=== PATIENT | female | born 1990 | race Caucasian/White ===

== ENCOUNTER 2016-10-13 01:59 | Emergency (ER) | payer MEDICAID ==
[2016-10-13] MEDS ORDERED: KETOROLAC 60 MG/2 ML VIAL IM STA (02:13)
[2016-10-13] MEDS ORDERED: KETOROLAC 60 MG/2 ML VIAL ONE (02:15)
[2016-10-13] MEDS ORDERED: DEXAMETHASONE 10 MG/ML VIAL IVP STA (02:42)
[2016-10-13] MEDS ORDERED: SODIUM CHLORIDE 0.9% 1,000 ML IV ONE (02:42)
[2016-10-13] MEDS ORDERED: cefTRIAXone 1 GM in SODIUM CHLORIDE 0.9% MINIBAG 100 ML IV STA (02:42)
[2016-10-13] MEDS ORDERED: cefTRIAXone 1 GM VIAL ONE (02:54)
[2016-10-13] MEDS ORDERED: DEXAMETHASONE 10 MG/ML VIAL ONE (02:54)
[2016-10-13] MEDS ORDERED: POTASSIUM BICARB 25 MEQ TABLET PO STA (03:33)
[2016-10-13] MEDS ORDERED: POTASSIUM BICARB 25 MEQ TABLET PO ONE (04:06)
[2016-10-13] MEDS ORDERED: SODIUM CHLORIDE 0.9% 500 ML IV ONE (04:11)
== END 2016-10-13 05:42 | disposition home or self-care (01) ==
DX: E86.0 Dehydration (principal); J18.9 Pneumonia, unspecified organism; F17.200 Nicotine dependence, unspecified, uncomplicated
CPT/HCPCS: 36415; 71020; 80053; 81003; 81025; 83690; 85025; 96361; 96372; 96374; 96375; 99283; 99284; A9270

== ENCOUNTER 2016-11-27 14:19 | Outpatient (CLI) | payer MEDICAID | END 2016-11-27 14:20 | disposition home or self-care (01) | DX: Z00.00 Encounter for general adult medical examination without abnormal findings (principal); Z83.49 Family history of other endocrine, nutritional and metabolic diseases ==

== ENCOUNTER 2016-12-25 02:45 | Emergency (ER) | payer MEDICAID ==
[2016-12-25] MEDS ORDERED: ONDANSETRON ODT 4 MG TABLET TL STA (03:03)
[2016-12-25] MEDS ORDERED: THIAMINE 100 MG TABLET PO STA (03:03)
[2016-12-25] MEDS ORDERED: FOLIC ACID 1 MG TABLET PO STA (03:03)
[2016-12-25] MEDS ORDERED: ONDANSETRON ODT 4 MG TABLET ONE (03:06)
[2016-12-25] MEDS ORDERED: THIAMINE 100 MG TABLET PO ONE (03:06)
[2016-12-25] MEDS ORDERED: MULTIVITAMIN TABLET PO ONE (03:08)
[2016-12-25] MEDS ORDERED: MULTIVITAMIN TABLET PO STA (03:11)
== END 2016-12-25 04:00 | disposition home or self-care (01) ==
DX: K29.70 Gastritis, unspecified, without bleeding (principal); F10.10 Alcohol abuse, uncomplicated; F17.200 Nicotine dependence, unspecified, uncomplicated
CPT/HCPCS: 81003; 81025; 99283; A9270; Q0162

== ENCOUNTER 2017-04-21 09:27 | Emergency (ER) | payer MEDICAID ==
[2017-04-21 09:47] VITALS: BP 141/98
== END 2017-04-21 09:50 | disposition left against medical advice (07) ==
LOC: ED 09:27
DX: S61.401A Unspecified open wound of right hand, initial encounter (principal); Z53.21 Procedure and treatment not carried out due to patient leaving prior to being seen by health care provider

== ENCOUNTER 2017-04-24 08:00 | Outpatient (CLI) | payer MEDICAID | END 2017-04-24 08:01 | disposition home or self-care (01) | LOC: LAB.R 08:00 | PROVIDERS: ATTEND Registered Nurse | DX: Z11.3 Encounter for screening for infections with a predominantly sexual mode of transmission (principal) | CPT/HCPCS: 87491; 87591 ==

== ENCOUNTER 2017-08-20 03:16 | Emergency (ER) | payer MEDICAID ==
[2017-08-20 03:23] VITALS: BP 163/114
--- NOTE | 2017-08-20 03:50 | ED Physician Documentation ---
History of Present Illness - Stated complaint Stated Complaint: BACK PAIN - Chief complaint Chief Complaint: Back Pain - History obtained from History obtained from: Patient (pt is here for evaluation fo bilateral back pain that she staes is just below her shoulder blades on both sides. pain with cough and deep breath and palpation, no fevers. she states that she has not been coughing. 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 HEENT: None Psych: None Musculoskeletal: None Derm: None - Past Surgical History Past Surgical History: No - Allergies Allergies/Adverse Reactions: Allergies Allergy/AdvReac Type Severity Reaction Status Date / Time hydrocodone bitartrate * Allergy Rash Verified 04/21/17 09:47 [From Vicodin] - Social History Does the pt smoke?: Yes Smoking Status: Current every day smoker Does the pt drink ETOH?: Yes Does the pt have substance abuse?: Yes - Immunizations Immunizations are current?: Yes - POLST Patient has POLST: No PD ED PE NORMAL - Vitals Vital signs reviewed: Yes - General General: Alert and oriented X 3, No acute distress - Cardiac Cardiac: No murmur. No: RRR (tachycardic) - Respiratory Respiratory: No respiratory distress, Clear bilaterally - Back Back: No CVA TTP, No spinal TTP, Other (somewhat TTP bilateral paraspinal area lower thoracic region ) - Derm Derm: Normal color, No rash - Neuro Neuro: Alert and oriented X 3 Eye Opening: Spontaneous Motor: Obeys Commands Verbal: Oriented GCS Score: 15 - Psych Psych: Normal mood, Normal affect Results - Vitals Vitals: Vital Signs - 24 hr 08/20/17 03:21 Temperature 36.1 C L Heart Rate 111 H Respiratory 18 Rate Blood Pressure 163/114 H O2 Saturation 99 Oxygen O2 Source Room air - Rads (name of study) CXR Radiology: Final report received (No acute abnormality ), EMP read contemporaneously PD MEDICAL DECISION MAKING - ED course Complexity details: reviewed results, re-evaluated patient, considered differential, d/w patient ED course: pt with bilateral mid back pain paraspinal region. no fevers, CXR neg, PE is not CW ACS or PE, no signs of PNA. suspect MSK in origin. Discussed with patient. Gave return precautions. Departure - Departure Disposition: Home, Self Care Clinical Impression: Back pain Condition: Good Instructions: ANTI-INFLAMMATORY, General Follow-Up: Primary, care provider [Other] Comments: Return to the ER for any new or worsening symptoms.
--- NOTE | 2017-08-20 04:03 | XRAY Preliminary Report ---
Exam: XR CHEST 2 VIEW PA/LAT IMPRESSION: 1. No acute abnormality seen in the chest. [facility] SITE ID: [id number]
--- NOTE | 2017-08-20 04:03 | XRAY Report ---
EXAM: CHEST RADIOGRAPHY EXAM DATE: 08/20/2017 03:46 AM. CLINICAL HISTORY: Chest pain . COMPARISON: 10/13/2016. TECHNIQUE: 2 views. FINDINGS: Lungs/Pleura: No alveolar consolidation or pleural effusion. No pneumothorax. Mediastinum: Heart and mediastinal contours are unremarkable. Other: None. IMPRESSION: 1. No acute abnormality seen in the chest. [facility] Referring Provider Line: [phone] SITE ID: [id number]
== END 2017-08-20 04:28 | disposition home or self-care (01) ==
LOC: ED 03:16
DX: M54.6 Pain in thoracic spine (principal); R05 Cough; R00.2 Palpitations; F17.200 Nicotine dependence, unspecified, uncomplicated
CPT/HCPCS: 71020; 99282; 99283

== ENCOUNTER 2017-10-20 20:55 | Emergency (ER) | payer MEDICAID ==
[2017-10-20 21:02] VITALS: BP 135/110
[2017-10-20] MEDS ORDERED: OXYMETAZOLINE NASAL SPRAY NAS STA (21:05)
--- NOTE | 2017-10-20 21:07 | ED Physician Documentation ---
PD HPI HEENT - Stated complaint Stated Complaint: NOSE BLEED - Chief complaint Chief Complaint: Heent - History obtained from History obtained from: Patient - History of Present Illness Timing - onset: Other (1-1/2 hours of heavy nosebleed from the right, she has had some ongoing sinus symptoms with allergy symptoms but no fevers. No possibility of .) Review of Systems Constitutional: denies: Fever, Chills Nose: reports: Rhinorrhea / runny nose, Epistaxis. 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 HEENT: None Psych: None Musculoskeletal: None Derm: None - Past Surgical History Past Surgical History: No - Allergies Allergies/Adverse Reactions: Allergies Allergy/AdvReac Type Severity Reaction Status Date / Time hydrocodone bitartrate * Allergy Rash Verified 04/21/17 09:47 [From Vicodin] - Social History Does the pt smoke?: Yes Smoking Status: Current every day smoker Does the pt drink ETOH?: Yes Does the pt have substance abuse?: Yes - Immunizations Immunizations are current?: Yes - POLST Patient has POLST: No PD ED PE NORMAL - Vitals Vital signs reviewed: Yes - General General: Alert and oriented X 3, No acute distress - HEENT HEENT: Other (Raw right nasal septum with some blood there but no active bleeding.) - Neck Neck: Supple, no meningeal sign, No bony TTP - Neuro Neuro: Alert and oriented X 3, Normal speech - Psych Psych: Normal mood, Normal affect Results - Vitals Vitals: Vital Signs - 24 hr 10/20/17 20:58 Temperature 35.9 C L Heart Rate 89 Respiratory 18 Rate Blood Pressure 135/110 H O2 Saturation 95 Oxygen O2 Source Room air Procedures - Epistaxis Site: Right, Anterior Preparation: Clots removed, Afrin Treatment: Silver Nitrate Other: Observed - no bleeding, Pt tolerated well Departure - Departure Disposition: 01 Home, Self Care Clinical Impression: Epistaxis Condition: Good Record reviewed to determine appropriate education?: Yes Instructions: ED Nosebleed Comments: Call your doctor to arrange a follow-up appointment, make the next available appointment. In the interim, return anytime if worse or if new symptoms develop. Your blood pressure was elevated today on check into the emergency department. This does not mean that you have hypertension, it is a common phenomenon to come to the emergency department and have elevated blood pressure. I recommend that you see your primary care physician within the week to have it rechecked when you are feeling better.
== END 2017-10-20 21:34 | disposition home or self-care (01) ==
LOC: ED 20:55
DX: R04.0 Epistaxis (principal); R03.0 Elevated blood-pressure reading, without diagnosis of hypertension; F17.200 Nicotine dependence, unspecified, uncomplicated
CPT/HCPCS: 30901; 99282; A9270

== ENCOUNTER 2018-12-15 20:49 | Emergency (ER) | payer MEDICAID ==
--- NOTE | 2018-12-15 21:10 | ED Physician Documentation ---
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 HEENT: None Psych: None Musculoskeletal: None Derm: None - Past Surgical History Past Surgical History: No - Allergies Allergies/Adverse Reactions: Allergies Allergy/AdvReac Type Severity Reaction Status Date / Time hydrocodone bitartrate * Allergy Rash Verified 04/21/17 09:47 [From Vicodin] - Social History Does the pt smoke?: Yes Smoking Status: Current every day smoker Does the pt drink ETOH?: Yes Does the pt have substance abuse?: Yes - Immunizations Immunizations are current?: Yes - POLST Patient has POLST: No Results - Vitals Vitals: Vital Signs - 24 hr 12/15/18 20:56 Temperature 36.9 C Heart Rate 162 H Respiratory 18 Rate Blood Pressure 119/96 H O2 Saturation 99 Oxygen O2 Source Room air
--- NOTE | 2018-12-15 21:13 | ED Physician Documentation ---
History of Present Illness - Stated complaint Stated Complaint: CHEST PX/SOA - Chief complaint Chief Complaint: Cardiac - History obtained from History obtained from: Patient - History of Present Illness Timing: Enter time (16:00), Today Improved by: nothing Worsened by: swallowing - Additonal information Additional information: patient c/o chest pain across anterior chest and painful, swollen throat since 4 PM today. vomiting at times during H+P. Patient told triage nurse she has been drinking alcohol heavily and daily until yesterday, and that she recently used methamphetamines. Review of Systems Constitutional: denies: Fever, Chills, Sweats Throat: reports: Sore throat Cardiac: reports: Chest pain / pressure. denies: Palpitations Respiratory: denies: Dyspnea, Cough GI: reports: Nausea, Vomiting. 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 HEENT: None Psych: None Musculoskeletal: None Derm: None - Past Surgical History Past Surgical History: No - Present Medications Home Medications: Ambulatory Orders Medication Instructions Recorded Confirmed Amoxicillin 500 mg PO BID #20 capsule 12/16/18 LORazepam [Lorazepam] 1 mg PO Q6HR PRN #14 tablet 12/16/18 Ondansetron Odt [Zofran] 4 mg TL Q6H PRN #10 tablet 12/16/18 cloNIDine HCl [Clonidine HCl] 0.1 mg PO BID #30 tablet 12/16/18 - Allergies Allergies/Adverse Reactions: Allergies Allergy/AdvReac Type Severity Reaction Status Date / Time hydrocodone bitartrate * Allergy Rash Verified 12/16/18 02:57 [From Vicodin] - Social History Does the pt smoke?: Yes Smoking Status: Current every day smoker Does the pt drink ETOH?: Yes Does the pt have substance abuse?: Yes - Immunizations Immunizations are current?: Yes - POLST Patient has POLST: No PD ED PE NORMAL - Vitals Vital signs reviewed: Yes - General General: Alert and oriented X 3, Well developed/nourished, Other (anxious) - HEENT HEENT: PERRL, EOMI, Other (parched mucous membranes; posterior oropharyngeal erythema without obvious swelling. trace exudate right posterior o/p) - Neck Neck: Supple, no meningeal sign - Respiratory Respiratory: No respiratory distress, Clear bilaterally - Abdomen Abdomen: Soft, Non tender - Back Back: No CVA TTP, No spinal TTP - Derm Derm: Normal color, Warm and dry - Extremities Extremities: No edema - Neuro Neuro: Alert and oriented X 3 PD ED PE EXPANDED - Cardiac Cardiac: Tachy, Regular Rhythm Results - Vitals Vitals: Vital Signs - 24 hr 12/15/18 12/15/18 12/15/18 20:56 21:32 22:08 Temperature 36.9 C Heart Rate 162 H 138 H 140 H Respiratory 18 16 16 Rate Blood Pressure 119/96 H 152/121 H 156/106 H O2 Saturation 99 99 99 12/15/18 12/15/18 12/16/18 23:10 23:40 00:15 Temperature Heart Rate 141 H 129 H 133 H Respiratory 24 18 28 H Rate Blood Pressure 155/122 H 153/116 H 155/118 H O2 Saturation 99 98 98 12/16/18 12/16/18 12/16/18 01:02 02:39 03:29 Temperature Heart Rate 124 H 122 H 124 H Respiratory 16 18 16 Rate Blood Pressure 154/115 H 145/102 H 160/149 H O2 Saturation 96 100 100 12/16/18 12/16/18 04:24 05:32 Temperature 36.5 C Heart Rate 124 H 124 H Respiratory 16 16 Rate Blood Pressure 146/115 H 146/105 H O2 Saturation 97 96 Oxygen O2 Source Room air - EKG (time done) No standard instances Rate: Rate (enter#) (154), Tachy Rhythm: Sinus tachycardia [place]: Normal Intervals: Normal CO QRS: Normal Ischemia: ST depression (diffuse) - Labs Labs: Laboratory Tests 12/15/18 12/15/18 12/15/18 21:18 21:18 21:18 WBC 7.7 RBC 4.50 Hgb 14.9 Hct 45.0 MCV 99.9 H MCH 33.2 H MCHC 33.2 RDW 12.9 Plt Count 99 L MPV 9.6 Neut # (Auto) 6.8 H Lymph # (Auto) 0.4 L [place] # (Auto) 0.5 Eos # (Auto) 0.0 Baso # (Auto) 0.0 Absolute Nucleated RBC 0.00 Nucleated RBC % 0.0 D-Dimer Sodium 134 L Potassium 4.2 Chloride 85 L Carbon Dioxide 11 L* Anion Gap 38.0 H BUN 31 H Creatinine 1.3 H Estimated GFR (MDRD) 48 L Glucose 289 H Lactic Acid Calcium 8.9 Total Bilirubin 3.4 H AST 151 H ALT 74 H Alkaline Phosphatase 91 Troponin I < 0.04 Total Protein 9.9 H Albumin 5.7 H Globulin 4.2 Albumin/Globulin Ratio 1.4 Lipase 97 H TSH Urine Color Urine Clarity Urine pH Ur Specific [place] Urine Protein Urine Glucose (UA) Urine Ketones Urine Occult Blood Urine Nitrite Urine Bilirubin Urine Urobilinogen Ur Leukocyte Esterase Urine RBC Urine WBC Ur Squamous Epith Cells Urine Bacteria Ur Microscopic Review Urine Culture Comments Urine HCG, Qual Urine Opiates Screen Ur Oxycodone Screen Urine Methadone Screen Ur Propoxyphene Screen Ur Barbiturates Screen Ur Tricyclics Screen Ur Phencyclidine Scrn Ur Amphetamine Screen U Methamphetamines Scrn U Benzodiazepines Scrn Urine Cocaine Screen U Cannabinoids Screen Ethyl Alcohol < 5.0 Serum Ketones Group A Strep Rapid 12/15/18 12/15/18 12/15/18 21:18 21:18 21:18 WBC RBC Hgb Hct MCV MCH MCHC RDW Plt Count MPV Neut # (Auto) Lymph # (Auto) [place] # (Auto) Eos # (Auto) Baso # (Auto) Absolute Nucleated RBC Nucleated RBC % D-Dimer 324.4 H Sodium Potassium Chloride Carbon Dioxide Anion Gap BUN Creatinine Estimated GFR (MDRD) Glucose Lactic Acid Calcium Total Bilirubin AST ALT Alkaline Phosphatase Troponin I Total Protein Albumin Globulin Albumin/Globulin Ratio Lipase TSH 0.74 Urine Color Urine Clarity Urine pH Ur Specific [place] Urine Protein Urine Glucose (UA) Urine Ketones Urine Occult Blood Urine Nitrite Urine Bilirubin Urine Urobilinogen Ur Leukocyte Esterase Urine RBC Urine WBC Ur Squamous Epith Cells Urine Bacteria Ur Microscopic Review Urine Culture Comments Urine HCG, Qual Urine Opiates Screen Ur Oxycodone Screen Urine Methadone Screen Ur Propoxyphene Screen Ur Barbiturates Screen Ur Tricyclics Screen Ur Phencyclidine Scrn Ur Amphetamine Screen U Methamphetamines Scrn U Benzodiazepines Scrn Urine Cocaine Screen U Cannabinoids Screen Ethyl Alcohol Serum Ketones SMALL H Group A Strep Rapid 12/15/18 12/16/18 12/16/18 21:40 00:30 00:30 WBC RBC Hgb Hct MCV MCH MCHC RDW Plt Count MPV Neut # (Auto) Lymph # (Auto) [place] # (Auto) Eos # (Auto) Baso # (Auto) Absolute Nucleated RBC Nucleated RBC % D-Dimer Sodium 134 L Potassium 4.4 Chloride 94 L Carbon Dioxide 16 L Anion Gap 24.0 H BUN 28 H Creatinine 1.1 H Estimated GFR (MDRD) 58 L Glucose 274 H Lactic Acid 1.7 Calcium 7.4 L Total Bilirubin AST ALT Alkaline Phosphatase Troponin I Total Protein Albumin Globulin Albumin/Globulin Ratio Lipase TSH Urine Color Urine Clarity Urine pH Ur Specific [place] Urine Protein Urine Glucose (UA) Urine Ketones Urine Occult Blood Urine Nitrite Urine Bilirubin Urine Urobilinogen Ur Leukocyte Esterase Urine RBC Urine WBC Ur Squamous Epith Cells Urine Bacteria Ur Microscopic Review Urine Culture Comments Urine HCG, Qual Urine Opiates Screen Ur Oxycodone Screen Urine Methadone Screen Ur Propoxyphene Screen Ur Barbiturates Screen Ur Tricyclics Screen Ur Phencyclidine Scrn Ur Amphetamine Screen U Methamphetamines Scrn U Benzodiazepines Scrn Urine Cocaine Screen U Cannabinoids Screen Ethyl Alcohol Serum Ketones Group A Strep Rapid POSITIVE H 12/16/18 12/16/18 00:58 00:58 WBC RBC Hgb Hct MCV MCH MCHC RDW Plt Count MPV Neut # (Auto) Lymph # (Auto) [place] # (Auto) Eos # (Auto) Baso # (Auto) Absolute Nucleated RBC Nucleated RBC % D-Dimer Sodium Potassium Chloride Carbon Dioxide Anion Gap BUN Creatinine Estimated GFR (MDRD) Glucose Lactic Acid Calcium Total Bilirubin AST ALT Alkaline Phosphatase Troponin I Total Protein Albumin Globulin Albumin/Globulin Ratio Lipase TSH Urine Color DARK YELLOW Urine Clarity CLEAR Urine pH 6.0 Ur Specific [place] >=1.030 H Urine Protein 100 H Urine Glucose (UA) NEGATIVE Urine Ketones >=80 H Urine Occult Blood TRACE-INTA Urine Nitrite NEGATIVE Urine Bilirubin NEGATIVE Urine Urobilinogen 0.2 (NORMAL) Ur Leukocyte Esterase NEGATIVE Urine RBC 0-5 Urine WBC 0-3 Ur Squamous Epith Cells MANY Squamous H Urine Bacteria Rare Ur Microscopic Review INDICATED Urine Culture Comments NOT INDICATED Urine HCG, Qual NEGATIVE Urine Opiates Screen NEGATIVE Ur Oxycodone Screen NEGATIVE Urine Methadone Screen NEGATIVE Ur Propoxyphene Screen NEGATIVE Ur Barbiturates Screen NEGATIVE Ur Tricyclics Screen NEGATIVE Ur Phencyclidine Scrn NEGATIVE Ur Amphetamine Screen NEGATIVE U Methamphetamines Scrn POSITIVE H U Benzodiazepines Scrn POSITIVE H Urine Cocaine Screen NEGATIVE U Cannabinoids Screen NEGATIVE Ethyl Alcohol Serum Ketones Group A Strep Rapid - Rads (name of study) chest xray Radiology: Prelim report reviewed, See rad report PD MEDICAL DECISION MAKING - ED course Complexity details: reviewed results, re-evaluated patient, considered differential, d/w patient ED course: Patient was treated in patient in September 2018 at [facility] for similar c/o. The discharged summary was faxed to this ED tonight and reviewed by me. Patient says she resumed drinking alcohol on a heavy and daily basis shortly after being discharged from [facility] and stopped drinking "a few days ago" (per patient). She says she last used methamphetamines approximately 2 days ago. She does not recall when she last took clonidine (prescribed when she was discharged from [facility]), but she says it has been at least 1 week or more. On reevaluation after IV fluids, toradol, zofran, she reports feeling significant improvement. She continued to have tachycardia and high blood pressure throughout ED stay, although these both improved with PO clonidine. She was in NAD at discharge and told me she was comfortable with being discharged. She is awake, alert, oriented, conversant, and appropriate. Given Rocephin for strep pharyngitis. rx for clonidine, ativan, zofran, and amoxicillin. Departure - Departure Disposition: 01 Home, Self Care Clinical Impression: Dehydration, Strep pharyngitis, Alcoholic ketoacidosis Alcohol withdrawal Qualifiers: Complication of substance-induced condition: uncomplicated Qualified Code(s): F10.230 - Alcohol dependence with withdrawal, uncomplicated Hypertension Qualifiers: Hypertension type: unspecified secondary hypertension Qualified Code(s): I15.9 - Secondary hypertension, unspecified Condition: Good Instructions: ED Withdrawal Alcohol, ED Dehydration, ED Hypertension Poss, ED Strep Pharyngitis Conf Follow-Up: [facility] [Provider Group] [facility] [Provider Group] Prescriptions: LORazepam [Lorazepam] 1 mg PO Q6HR PRN #14 tablet PRN Reason: Alcohol Withdrawal Amoxicillin 500 mg PO BID #20 capsule cloNIDine HCl [Clonidine HCl] 0.1 mg PO BID #30 tablet Ondansetron Odt [Zofran] 4 mg TL Q6H PRN #10 tablet PRN Reason: Nausea / Vomiting Discharge Date/Time: 12/16/18 05:54
[2018-12-15] MEDS ORDERED: SODIUM CHLORIDE 0.9% 1,000 ML IV STA ×2 (21:15→22:50)
[2018-12-15] MEDS ORDERED: LORazepam 2 MG/ML VIAL IVP STA ×2 (21:15→22:51)
[2018-12-15] MEDS ORDERED: KETOROLAC 30 MG/ML VIAL IVP STA (21:24)
[2018-12-15 21:38] LABS: BASOPHILS % (AUTO) 0.4 %; HGB - HEMOGLOBIN 14.9 g/dL (12.0-16.0); LYMPHOCYTES # (AUTO) 0.4 10^3/uL (1.5-3.5); LYMPHOCYTES % (AUTO) 4.7 %; MEAN CORPUSCULAR HEMOGLOBIN 33.2 pg (27.0-31.0); MEAN CORPUSCULAR HGB CONC 33.2 g/dL (32.0-36.0); MEAN CORPUSCULAR VOLUME 99.9 fL (81.0-99.0); MEAN PLATELET VOLUME 9.6 fL (7.9-10.8); MONOCYTES # (AUTO) 0.5 10^3/uL (0.0-1.0); MONOCYTES % (AUTO) 5.9 %; NEUTROPHILS # (AUTO) 6.8 10^3/uL (1.5-6.6); PLT - PLATELET COUNT 99 10^3/uL (130-450); RED CELL DISTRIBUTION WIDTH 12.9 % (12.0-15.0); WHITE BLOOD COUNT 7.7 x10^3/uL (4.8-10.8)
[2018-12-15 21:51] LABS: ALBUMIN 5.7 g/dL (3.2-5.5); ALBUMIN/GLOBULIN RATIO 1.4 (1.0-2.2); ALKALINE PHOSPHATASE 91 IU/L (42-121); ALT ALANINE AMINOTRANSFERASE 74 IU/L (10-60); AST ASPARTATE AMINOTRANSFERASE 151 IU/L (10-42); BILIRUBIN,TOTAL 3.4 mg/dL (0.2-1.0); BUN - BLOOD UREA NITROGEN 31 mg/dL (6-20); CALCIUM 8.9 mg/dL (8.5-10.3); CHLORIDE 85 mmol/L (101-111); CREATININE 1.3 mg/dL (0.4-1.0); GFR - MDRD 48 (>89); GLUCOSE 289 mg/dL (70-100); LIPASE 97 U/L (22-51); SODIUM 134 mmol/L (135-145); TOTAL PROTEIN 9.9 g/dL (6.7-8.2)
[2018-12-15 21:52] LABS: CARBON DIOXIDE - CO2 11 mmol/L (21-32)
--- NOTE | 2018-12-15 22:04 | XRAY Report ---
Reason: chest pain, tachycardia Procedure Date: 12/15/2018 Accession Number: [id number] / [id number] Procedure: XR - Chest 2 View X-Ray CPT Code: 92906 FULL RESULT: EXAM: CHEST RADIOGRAPHY EXAM DATE: 12/15/2018 09:55 PM. CLINICAL HISTORY: Chest pain, tachycardia. COMPARISON: CHEST 2 VIEW PA/LAT 08/20/2017 3:27 AM. TECHNIQUE: 2 views. FINDINGS: Lungs/Pleura: No focal opacities evident. No pleural effusion. No pneumothorax. Normal volumes. Mediastinum: Heart and mediastinal contours are unremarkable. Other: None. IMPRESSION: No acute intrathoracic plain film abnormality. [facility]
[2018-12-15] MEDS ORDERED: cefTRIAXone 1 GM in SODIUM CHLORIDE 0.9% MINIBAG 100 ML IV STA (22:50)
[2018-12-15] MEDS ORDERED: ONDANSETRON 4 MG/2 ML VIAL IVP STA (22:51)
[2018-12-16 00:46] LABS: CALCIUM 7.4 mg/dL (8.5-10.3); CREATININE 1.1 mg/dL (0.4-1.0)
[2018-12-16] MEDS ORDERED: SODIUM CHLORIDE 0.9% 1,000 ML IV STA (01:04)
[2018-12-16 01:08] LABS: MUDS CUTOFF CONCENTRATIONS CUTOFF CONC BELOW:
[2018-12-16 01:12] LABS: GLUCOSE, URINE (UA) NEGATIVE (NEGATIVE); KETONES,URINE (UA) >=80 mg/dL (NEGATIVE); LEUKOCYTE ESTERASE, URINE NEGATIVE (NEGATIVE); NITRITE,URINE NEGATIVE (NEGATIVE); OCCULT BLOOD,URINE TRACE-INTA (NEGATIVE); PROTEIN,URINE 100 mg/dL (NEGATIVE); UROBILINOGEN,URINE 0.2 (NORMAL) E.U./dL (NORMAL)
[2018-12-16 01:15] LABS: CLARITY,URINE CLEAR (CLEAR); HCG UR QUAL NEGATIVE
[2018-12-16 01:22] LABS: BILIRUBIN,URINE NEGATIVE (NEGATIVE); ICTOTEST,URINE NEGATIVE
[2018-12-16 01:23] LABS: AMPHETAMINE SCREEN,URINE NEGATIVE (NEGATIVE); BACTERIA,URINE Rare /HPF (None Seen); BENZODIAZEPINES SCREEN, URINE POSITIVE (NEGATIVE); COCAINE SCREEN URINE NEGATIVE (NEGATIVE); METHADONE SCREEN, URINE NEGATIVE (NEGATIVE); METHAMPHETAMINES SCREEN, URINE POSITIVE (NEGATIVE); OPIATE SCREEN, URINE NEGATIVE (NEGATIVE); OXYCODONE SCREEN, URINE NEGATIVE (NEGATIVE); PROPOXYPHENE SCREEN, URINE NEGATIVE (NEGATIVE); RBC,URINE 0-5 /HPF (0-5); SQUAMOUS EPITHELIAL CELL,UR MANY Squamous (<= Few); TRICYCLIC ANTIDEPRESSANT,URINE NEGATIVE (NEGATIVE)
[2018-12-16] MEDS ORDERED: cloNIDine 0.1 MG TABLET PO STA (04:02)
[2018-12-16 05:34] VITALS: BP 146/105
== END 2018-12-16 05:54 | disposition home or self-care (01) ==
LOC: ED 20:49
DX: E86.0 Dehydration (principal); J02.0 Streptococcal pharyngitis; E87.2 Acidosis; F10.230 Alcohol dependence with withdrawal, uncomplicated; I15.9 Secondary hypertension, unspecified; F17.200 Nicotine dependence, unspecified, uncomplicated
CPT/HCPCS: 36415; 71046; 80048; 80053; 80306; 80320; 81001; 81025; 82009; 83605; 83690; 84443; 84484; 85025; 85379; 87430; 93005; 96361; 96365; 96376; 99284; A9270; J2060; 81003; 87086; 99285

== ENCOUNTER 2019-02-10 12:53 | Emergency (ER) | payer MEDICAID ==
[2019-02-10 13:05] VITALS: BP 130/97
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
[2019-02-10] MEDS ORDERED: IBUPROFEN 800 MG TABLET PO STA (13:43)
--- NOTE | 2019-02-10 13:56 | XRAY Report ---
Reason: injury Procedure Date: 02/10/2019 Accession Number: [id number] / [id number] Procedure: XR - Elbow 3 View LT CPT Code: FULL RESULT: EXAM: LEFT ELBOW RADIOGRAPHY EXAM DATE: 02/10/2019 01:36 PM. CLINICAL HISTORY: Left elbow pain and swelling. COMPARISON: ELBOW 3 VIEW RT 01/21/2015 9:53 PM. TECHNIQUE: 3 views. FINDINGS: Bones: No acute fracture or dislocation. Joints: No joint effusion. No degenerative changes. Soft Tissues: Diffuse generalized soft tissue swelling, which is most prominent medially. IMPRESSION: Diffuse soft tissue swelling. No acute fracture or dislocation visualized. [facility]
== END 2019-02-10 14:24 | disposition home or self-care (01) ==
LOC: ED 12:53
DX: S50.02XA Contusion of left elbow, initial encounter (principal); S40.011A Contusion of right shoulder, initial encounter; V86.99XA Unspecified occupant of other special all-terrain or other off-road motor vehicle injured in nontraffic accident, initial encounter; I10 Essential (primary) hypertension; F17.200 Nicotine dependence, unspecified, uncomplicated
CPT/HCPCS: 73080; 99282; A9270

== ENCOUNTER 2019-04-17 04:51 | Outpatient (CLI) | payer MEDICAID | END 2019-04-17 04:52 | disposition critical access hospital (66) | LOC: EMS 04:51 | PROVIDERS: ATTEND Surgery | DX: R06.00 Dyspnea, unspecified (principal); R11.2 Nausea with vomiting, unspecified; R07.0 Pain in throat | CPT/HCPCS: A0425; A0429; A0999 ==

== ENCOUNTER 2019-04-17 05:05 | Inpatient (IN) | payer MEDICAID ==
[2019-04-17] MEDS ORDERED: FOLIC ACID INJ 1 MG, THIAMINE INJ 100 MG, MAGNESIUM SULFATE 2 GM, MULTIVITAMIN 10 ML in... IV STA ×5 (05:25)
[2019-04-17] MEDS ORDERED: ONDANSETRON 4 MG/2 ML VIAL IVP STA (05:25)
[2019-04-17] MEDS ORDERED: LORazepam 2 MG/ML VIAL IVP STA (05:25)
[2019-04-17] MEDS ORDERED: DEXAMETHASONE 10 MG/ML VIAL IVP STA (05:37)
[2019-04-17] MEDS ORDERED: THIAMINE 100 MG/1 ML 2 ML MDV ONE (05:40)
[2019-04-17 05:45] LABS: BASOPHILS % (AUTO) 0.3 %; EOSINOPHILS # (AUTO) 0.1 10^3/uL (0.0-0.7); EOSINOPHILS % (AUTO) 0.7 %; HGB - HEMOGLOBIN 15.3 g/dL (12.0-16.0); LYMPHOCYTES % (AUTO) 7.3 %; MEAN CORPUSCULAR HEMOGLOBIN 34.6 pg (27.0-31.0); MEAN CORPUSCULAR HGB CONC 32.2 g/dL (32.0-36.0); MEAN CORPUSCULAR VOLUME 107.5 fL (81.0-99.0); MEAN PLATELET VOLUME 11.9 fL (7.9-10.8); MONOCYTES # (AUTO) 0.6 10^3/uL (0.0-1.0); MONOCYTES % (AUTO) 4.4 %; NEUTROPHILS % (AUTO) 86.6 %; PLT - PLATELET COUNT 209 10^3/uL (130-450); RED BLOOD COUNT 4.42 10^6/uL (4.20-5.40); RED CELL DISTRIBUTION WIDTH 12.7 % (12.0-15.0); WHITE BLOOD COUNT 13.9 x10^3/uL (4.8-10.8)
[2019-04-17 05:48] LABS: INR 1.1 (0.8-1.2); PT - PROTHROMBIN TIME 12.6 secs (9.9-12.6)
[2019-04-17 05:54] LABS: ALBUMIN 5.1 g/dL (3.2-5.5); ALBUMIN/GLOBULIN RATIO 1.3 (1.0-2.2); ALKALINE PHOSPHATASE 100 IU/L (42-121); ALT ALANINE AMINOTRANSFERASE 92 IU/L (10-60); AST ASPARTATE AMINOTRANSFERASE 195 IU/L (10-42); BILIRUBIN,TOTAL 1.5 mg/dL (0.2-1.0); BUN - BLOOD UREA NITROGEN 26 mg/dL (6-20); CALCIUM 8.8 mg/dL (8.5-10.3); CHLORIDE 90 mmol/L (101-111); CREATININE 2.1 mg/dL (0.4-1.0); GFR - MDRD 28 (>89); GLUCOSE 153 mg/dL (70-100); LIPASE 29 U/L (22-51); SODIUM 141 mmol/L (135-145); TOTAL PROTEIN 8.9 g/dL (6.7-8.2)
[2019-04-17 05:56] LABS: CARBON DIOXIDE - CO2 < 6 mmol/L (21-32)
[2019-04-17] MEDS ORDERED: SODIUM CHLORIDE 0.9% 1,000 ML IV ONE ×2 (06:00→06:14)
[2019-04-17] MEDS ORDERED: SUCRALFATE 1 GM/10 ML UDC PO STA (06:00)
[2019-04-17] MEDS ORDERED: PANTOPRAZOLE 40 MG VIAL IVP STA (06:00)
--- NOTE | 2019-04-17 06:05 | ED Physician Documentation ---
History of Present Illness - Stated complaint Stated Complaint: ETOH W/D, N/V - Chief complaint Chief Complaint: Resp - History obtained from History obtained from: Patient, Family, EMS - History of Present Illness Timing: Yesterday - Additonal information Additional information: 28-year-old alcoholic female has been drinking heavily and she has begun to develop some nausea and vomiting attempted to quit drinking. She apparently has more vomiting when she attempts to quit drinking and she has been vomiting over the past 24 hours. She is attempted to drink fluids although it is come back up. She is now developed some difficulty with breathing and has called the ambulance. She is accompanied today by her boyfriend. He indicates that the patient drinks quite heavily on a regular basis and has periodic withdrawal when she develops problems with her stomach. Review of Systems Unable to obtain: Intoxicated Constitutional: denies: Fever Eyes: denies: Decreased vision Ears: denies: Ear pain Nose: denies: Congestion Throat: reports: Sore throat Cardiac: denies: Chest pain / pressure, Palpitations Respiratory: reports: Dyspnea. denies: Cough GI: reports: Abdominal Pain, Nausea, Vomiting : denies: Dysuria, Frequency Skin: denies: Rash Musculoskeletal: denies: Neck pain, Back pain, Extremity pain Neurologic: reports: Generalized weakness. denies: Focal weakness, Numbness PD PAST MEDICAL HISTORY - Past Medical History Cardiovascular: Hypertension Respiratory: None Endocrine/Autoimmune: None GI: None RN IMMUNOLOGY: None : None HEENT: None Psych: None Musculoskeletal: None Derm: None - Past Surgical History Past Surgical History: No - Present Medications Home Medications: Ambulatory Orders Medication Instructions Recorded Confirmed Amoxicillin 500 mg PO BID #20 capsule 12/16/18 LORazepam [Lorazepam] 1 mg PO Q6HR PRN #14 tablet 12/16/18 Ondansetron Odt [Zofran] 4 mg TL Q6H PRN #10 tablet 12/16/18 cloNIDine HCl [Clonidine HCl] 0.1 mg PO BID #30 tablet 12/16/18 - Allergies Allergies/Adverse Reactions: Allergies Allergy/AdvReac Type Severity Reaction Status Date / Time hydrocodone bitartrate * Allergy Rash Verified 02/10/19 13:05 [From Vicodin] - Social History Does the pt smoke?: Yes Smoking Status: Current every day smoker Does the pt drink ETOH?: Yes Does the pt have substance abuse?: Yes - Immunizations Immunizations are current?: Yes - POLST Patient has POLST: No PD ED PE NORMAL - Vitals Vital signs reviewed: Yes (tachy ) - General General: Well developed/nourished, Other (28 y/o female appears dry and has black around the mouth and tongue. She is not shaking. She is responsive and indicates she is having difficutly breathing. She has audible upper airway sounds and is able to talk in several word sentences. She is covered in tatoos and is in a bra and shorts in the ED. ) - HEENT HEENT: Atraumatic, PERRL, EOMI, Other (parched mucous membranes with black substance on the tongue. ) - Neck Neck: Supple, no meningeal sign, No bony TTP - Cardiac Cardiac: No murmur, Other (tachy to 120) - Respiratory Respiratory: Other (tachypneic with good symetrict air movement and the upper airway sounds are not transmitted. ) - Abdomen Abdomen: Soft, Non tender - Back Back: No CVA TTP, No spinal TTP - Derm Derm: Normal color, Warm and dry, No rash - Extremities Extremities: No deformity, Normal ROM s pain, No calf tenderness / cord - Neuro Neuro: principal cloud architect 2-12 intact, No motor deficit, No sensory deficit, Normal speech Eye Opening: To Voice Motor: Obeys Commands Verbal: Oriented GCS Score: 14 - Psych Psych: Other (mood is withdrawn affect is flat) Results - Vitals Vitals: Vital Signs - 24 hr 04/17/19 04/17/19 04/17/19 05:06 05:43 05:48 Temperature 36.7 C Heart Rate 135 H 127 H 125 H Respiratory 24 12 18 Rate Blood Pressure 92/60 96/74 108/76 O2 Saturation 99 100 100 04/17/19 04/17/19 04/17/19 06:00 06:30 07:00 Temperature Heart Rate 117 H 127 H 129 H Respiratory 13 15 23 Rate Blood Pressure 116/68 116/91 H 115/67 O2 Saturation 100 97 100 Oxygen O2 Source Room air - EKG (time done) 0546 Rate: Rate (enter#) (123) Rhythm: Sinus tachycardia Intervals: Prolonged QT Ischemia: ST depression (borderline) Compare to prior EKG: Changed from prior EKG (SPT 12-15-2018 lateral ishemic changes are less prominent today) Computer interpretation: Agree with computer - Labs Labs: Laboratory Tests 04/17/19 04/17/19 04/17/19 05:15 05:25 05:25 WBC 13.9 H RBC 4.42 Hgb 15.3 Hct 47.5 H MCV 107.5 H MCH 34.6 H MCHC 32.2 RDW 12.7 Plt Count 209 MPV 11.9 H Neut # (Auto) 12.0 H Lymph # (Auto) 1.0 L [place] # (Auto) 0.6 Eos # (Auto) 0.1 Baso # (Auto) 0.0 Absolute Nucleated RBC 0.00 Nucleated RBC % 0.0 PT INR VBG pH VBG pCO2 VBG pO2 VBG HCO3 VBG Total CO2 VBG O2 Saturation VBG Base Excess Sodium 141 Potassium 4.3 Chloride 90 L Carbon Dioxide < 6 L* Anion Gap 46.0 H BUN 26 H Creatinine 2.1 H Estimated GFR (MDRD) 28 L Glucose 153 H Lactic Acid > 10.0 H* Calcium 8.8 Total Bilirubin 1.5 H AST 195 H ALT 92 H Alkaline Phosphatase 100 Total Protein 8.9 H Albumin 5.1 Globulin 3.8 Albumin/Globulin Ratio 1.3 Lipase 29 Salicylates Acetaminophen Ethyl Alcohol > 1100.0 H* 04/17/19 04/17/19 04/17/19 05:25 05:25 06:36 WBC RBC Hgb Hct MCV MCH MCHC RDW Plt Count MPV Neut # (Auto) Lymph # (Auto) [place] # (Auto) Eos # (Auto) Baso # (Auto) Absolute Nucleated RBC Nucleated RBC % PT 12.6 INR 1.1 VBG pH 6.907 L VBG pCO2 27.2 L VBG pO2 77.8 H VBG HCO3 5.3 L VBG Total CO2 6.1 L VBG O2 Saturation 90.4 H VBG Base Excess -26.5 L Sodium Potassium Chloride Carbon Dioxide Anion Gap BUN Creatinine Estimated GFR (MDRD) Glucose Lactic Acid Calcium Total Bilirubin AST ALT Alkaline Phosphatase Total Protein Albumin Globulin Albumin/Globulin Ratio Lipase Salicylates < 6.0 Acetaminophen < 10 L Ethyl Alcohol Procedures - IVC sono (time) 0520 Bedside IVC sono: IVC measures (cm) (0.63), IVC collapsed c insp (cm) (complete), Profound dehydration (est 3+ liters deficit) PD MEDICAL DECISION MAKING - ED course Complexity details: reviewed old records, reviewed results, re-evaluated patient, considered differential, d/w patient, d/w family ED course: 28-year-old female alcoholic presents to the emergency department with nausea vomiting and difficulty breathing related to alcohol withdrawal. The patient arrives to the emergency department critically ill with a blood pressure of 84 and a heart rate of 135. She is found to be profoundly dehydrated on interrogation of the inferior vena cava. She is administered a banana bag wide open followed by 2 L of saline she is administered Ativan dexamethasone Protonix and sucralfate. She is found to have a marked metabolic acidosis with a lactate of over 10 falsely elevating her blood alcohol level to over 1100. A 4th liter is run as a bicarb infusion 150mEq over 5 hours with the pH at 6.9. Dr. Ryan Yun is consulted in the case and graciously agrees to care for the patient in the hospital. Departure - Departure Disposition: 66 [facility] DC/Xfer Clinical Impression: Dehydration, Alcoholic ketoacidosis Vomiting Qualifiers: Vomiting type: unspecified Vomiting Intractability: non-intractable Nausea presence: with nausea Qualified Code(s): R11.2 - Nausea with vomiting, unspecified
[2019-04-17 06:44] LABS: VBG PH 6.907 (7.31-7.41)
[2019-04-17 06:45] LABS: VBG BASE EXCESS -26.5 mmol/L (-2 - +2); VBG PCO2 27.2 mmHg (41-51); VBG PO2 77.8 mmHg (25-47); VBG TOTAL CO2 6.1 mmol/L (24-29)
[2019-04-17] MEDS ORDERED: SODIUM BICARBONATE 150 MEQ in DEXTROSE 5% 1,000 ML IV STA ×2 (07:02→08:26)
[2019-04-17 07:04] LABS: ACETAMINOPHEN < 10 ug/mL (10-30); SALICYLATE < 6.0 mg/dL
[2019-04-17] MEDS ORDERED: ONDANSETRON 4 MG/2 ML VIAL IVP PRN (07:13)
[2019-04-17 07:40] LABS: KETONES, SERUM (ACETEST) SMALL (NEGATIVE)
[2019-04-17 08:06] LABS: PHOSPHORUS 11.6 mg/dL (2.5-4.6)
[2019-04-17] MEDS: LORazepam 2 MG/ML VIAL IVP PRN ×9 (08:50→21:41)
[2019-04-17 09:01] LABS: BILIRUBIN,URINE NEGATIVE (NEGATIVE); GLUCOSE, URINE (UA) NEGATIVE (NEGATIVE); KETONES,URINE (UA) 40 mg/dL (NEGATIVE); LEUKOCYTE ESTERASE, URINE NEGATIVE (NEGATIVE); NITRITE,URINE NEGATIVE (NEGATIVE); OCCULT BLOOD,URINE MODERATE (NEGATIVE); PH,URINE 5.5 PH (5.0-7.5); PROTEIN,URINE 100 mg/dL (NEGATIVE); UROBILINOGEN,URINE 0.2 (NORMAL) E.U./dL (NORMAL)
[2019-04-17 09:03] LABS: MUDS CUTOFF CONCENTRATIONS CUTOFF CONC BELOW:
[2019-04-17 09:11] LABS: CLARITY,URINE HAZY (CLEAR); HCG UR QUAL NEGATIVE; RBC,URINE 0-5 /HPF (0-5); SQUAMOUS EPITHELIAL CELL,UR MANY Squamous (<= Few)
[2019-04-17 09:12] LABS: AMPHETAMINE SCREEN,URINE POSITIVE (NEGATIVE); BACTERIA,URINE Few /HPF (None Seen); BENZODIAZEPINES SCREEN, URINE POSITIVE (NEGATIVE); COCAINE SCREEN URINE NEGATIVE (NEGATIVE); METHADONE SCREEN, URINE NEGATIVE (NEGATIVE); METHAMPHETAMINES SCREEN, URINE POSITIVE (NEGATIVE); OPIATE SCREEN, URINE NEGATIVE (NEGATIVE); OXYCODONE SCREEN, URINE NEGATIVE (NEGATIVE); PROPOXYPHENE SCREEN, URINE NEGATIVE (NEGATIVE); TRICYCLIC ANTIDEPRESSANT,URINE NEGATIVE (NEGATIVE)
[2019-04-17] MEDS: SODIUM CHLORIDE FLUSH 0.9% 10 ML SYRINGE IVP SCH ×3 (09:52→21:43)
--- NOTE | 2019-04-17 10:54 | HISTORY & PHYSICAL EXAMINATION ---
Chief Complaint - Chief Complaint Chief Complaint: Nausea and vomiting History of Present Illness - Admitted From Admitted From:: Home - History Obtained From Records Reviewed: Yes History obtained from: Patient, Boyfriend, ER Physician Exam Limitations: Patient lethargic and vomiting - History of Present Illness HPI Comment/Other: This is a 28 year old female with history of alcohol abuse who presents from home for persistent nausea and vomiting over the past 24 hours. Most of the history is obtained from the patient's boyfriend as she lethargic and continues to have multiple episodes of emesis. He tells me that she has been drinking for the past five years on a daily basis. She usually drinks about 750mL of whiskey a day. Her last drink was yesterday morning. He states she may have gone through withdrawal in the past but he is not certain for sure. She has tried different resources for alcohol abuse without much success. He states that the patient has told him in the past it is too late for her to get help. He also tells me that she has been hospitalized a few times for similar complaints of nausea, vomitin g, and "liver problems". Her most recent admission was about one month ago at [facility] where she was hospitalized for one 4 days and she left early despite the physicians there wanting to keep her for another day or two. The patient currently complains of nausea and non-bloody emesis. She complaints of throat pain and that it is burning. She does feel short of breath. She denies abdominal pain but endorses fevers and chills that began yesterday morning. In the ER, she was initially hypotensive and tachycardic with heart rates in the 130's. Labs were significant for a severe elevated AG metabolic acidosis and elevated lactic acid. Alcohol level was >1000. LFT's were elevated with AST > ALT. Her pH on VBG was 6.907. She was given Thiamine and Folic and multiple litres of crystalloid. She was then started on a bicarbonate infusion. She will be admitted to the ICU for further management. 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 She also denies any family history in general. Living arrangement: At home Social History Notes: She lives with her boyfriend in [place]. She does not currently work. She has been dirinking about 750mL of whiskey daily. She does smoke. Denies illicit drug use. - Substance History Abuse: Recurrent use of substance despite neg consequences: Alcohol Abuse Issues: Intoxication Dependence: Experiences withdrawal or developed tolerances: Alcohol - POLST Patient has POLST: No Meds/Allgy - Home Medications Home Medications: Ambulatory Orders Medication Instructions Recorded Confirmed Amoxicillin 500 mg PO BID #20 capsule 12/16/18 LORazepam [Lorazepam] 1 mg PO Q6HR PRN #14 tablet 12/16/18 Ondansetron Odt [Zofran] 4 mg TL Q6H PRN #10 tablet 12/16/18 cloNIDine HCl [Clonidine HCl] 0.1 mg PO BID #30 tablet 12/16/18 - Allergies Allergies/Adverse Reactions: Allergies Allergy/AdvReac Type Severity Reaction Status Date / Time hydrocodone bitartrate * Allergy Rash Verified 02/10/19 13:05 [From Vicodin] Review of Systems - Constitutional Constitutional: reports: Fever, Chills, Weakness - Ears, Nose & Throat Ears, Nose & Throat: reports: Sore throat - Cardiovascular Cariovascular: denies: Chest pain - Respiratory Respiratory: reports: SOB at rest - Gastrointestinal Gastrointestinal: reports: Nausea, Vomiting. denies: Abdominal pain, Presley blood emesis - All Other Systems All Other Systems: reports: Other (Review of systems is limited to the acuity of condition, that is lethargic, and continues vomit.) Prior Level of Functionality: Independent with ADL's. Exam - Vital Signs Reviewed Vital Signs: Yes Vital Signs: Vital Signs x48h Temp Pulse Pulse Resp BP BP Pulse Ox 04/17/19 10:00 38.0 C H 133 H 19 154/115 H 04/17/19 09:00 133 H 19 139/103 H 04/17/19 08:45 132 H 139/103 H 04/17/19 08:30 145 H 21 148/105 H 04/17/19 08:20 37.0 C 136 H 13 149/95 H 100 04/17/19 07:35 130 H 19 117/68 100 04/17/19 07:00 129 H 23 115/67 100 04/17/19 06:30 127 H 15 116/91 H 97 04/17/19 06:00 117 H 13 116/68 100 04/17/19 05:48 125 H 18 108/76 100 04/17/19 05:43 127 H 12 96/74 100 04/17/19 05:06 36.7 C 135 H 24 92/60 99 - Physical Exam General Appearance: positive: Moderate distress, Lethargic Eyes Bilateral: positive: Normal inspection ENT: positive: Pharyngeal erythema Neck: positive: Nml inspection Respiratory: positive: Breath sounds nml, Other (Tachypnic.) Cardiovascular: positive: No murmur, Extrasystoles, Tachycardia Abdomen: positive: Non-tender, No distention. negative: Tenderness, Guarding, Rebound Skin: positive: Color nml, No rash, Warm, Dry Extremities: positive: No pedal edema Neurologic/Psychiatric: positive: Oriented x3, Other (No focal motor deficits). negative: Disoriented to person, Disoriented to place, Disoriented to time Conclusion/Plan - Problem List (1) Lactic acidosis Conclusion/Plan: She has sever lactic acidosis secondary to her alcohol use. Her pH is 6.9, bicarbonate <6, AG is 46, and lactic acid >10. There is likely a component of alcoholic ketoacidosis as well as her serum ketones are positive. She has received multiple litres of crystalloid in the ER and started on a bicarbonate infusion. - Will continue bicarbonate infusion for now at 150 mL/hr but will likely trans ition to D5/0.5NS once the bag is completed - Recheck lactic acid and electrolytes every 4 hours - NPO for now (2) Alcohol withdrawal Conclusion/Plan: She appears to be going through alcohol withdrawal at this time. She is hypertensive, tachycardic, febrile and having visual hallucinations. Her last drink was about 24 hours ago. EtOH level >1000 but this may also be due to her severe lactic acidosis. - Banana bag - Ativan IV PRN - CIWA protocol Qualifiers: Complication of substance-induced condition: uncomplicated Qualified Code(s): F10.230 - Alcohol dependence with withdrawal, uncomplicated (3) Alcoholic hepatitis Conclusion/Plan: Her LFT's are elevated and the pattern is consistent with alcoholic hepatitis given her AST:ALT is 2:1. Maddrey's score is <32. - No role for steroids or trental given her maddrey's scre - Monitor LFT's (4) Acute kidney injury Conclusion/Plan: Suspect this is likely pre-renal given multiple episodes of emesis. Creatinine elevated at 2.1, baseline appears to be approximately 1.1. Urinalysis did not reveal granular casts although there was occult blood with no RBC's so she may have rhabdomyolysis. - Continue IV fluids - Check CK's - Monitor renal function and urine output (5) Alcohol abuse Conclusion/Plan: She has now been abusing alcohol for at least 5 years and continues to drink on a daily basis. She reports no success with prior rehab attempts. - Will ask social work to discuss with the patient regarding potential resources and options to help her with alcohol dependence. This will need to occur when she recovers from her acute illness. (6) Gastritis Conclusion/Plan: Secondary to her alcohol abuse. Continues to have non-bloody emesis. - Protonix IV - Zofran IV - Lab Results Lab results reviewed: Yes Fish Bones: 04/17/19 05:25 04/17/19 05:25 - EKG Results EKG Interpreted Independently: Yes EKG Comparison: No prior EKG EKG Findings: Sinus tachycardia without ischemic changes. QTc is prolonged. Core Measures - Anticipated LOS I expect patient to be DC'd or transferred within 96 hours.: Yes - Issues Hospital Issues and Management Plan: Severe metabolic acidosis and dehydration requiring IV fluids. Monitor for alcohol withdrawal. - DVT/VTE - Prophylaxis VTE/DVT Device ordered at admit?: Yes VTE/DVT Prophylaxis med ordered at admit?: Yes
[2019-04-17] MEDS: INSULIN REGULAR HUMAN 100 UNIT/1 ML 10 ML MDV SUBQ SCH ×3 (12:21→23:38)
[2019-04-17 12:42] LABS: CREATININE 1.4 mg/dL (0.4-1.0); MAGNESIUM 2.1 mg/dL (1.7-2.8); PHOSPHORUS 1.5 mg/dL (2.5-4.6)
[2019-04-17] MEDS ORDERED: SODIUM PHOSPHATE 20 MMOL in SODIUM CHLORIDE 0.9% 250 ML IV ONE (12:49)
[2019-04-17] MEDS ORDERED: INSULIN GLARGINE 300 UNIT/3 ML PEN SUBQ ONE (13:00)
[2019-04-17 13:57] LABS: BILIRUBIN,DIRECT 0.6 mg/dL (0.1-0.5); BILIRUBIN,TOTAL 1.7 mg/dL (0.2-1.0); TOTAL PROTEIN 7.1 g/dL (6.7-8.2)
[2019-04-17] MEDS ORDERED: CALCIUM GLUCONATE 2,000 MG in SODIUM CHLORIDE 0.9% 100ML 100 ML IV ONE (14:10)
--- NOTE | 2019-04-17 14:14 | XRAY Report ---
Reason: Vomiting. Eval for aspiration. Procedure Date: 04/17/2019 Accession Number: [id number] / [id number] Procedure: XR - Chest 1 View X-Ray CPT Code: 15326 FULL RESULT: EXAM: CHEST RADIOGRAPHY EXAM DATE: 04/17/2019 01:53 PM. CLINICAL HISTORY: Vomiting. Eval for aspiration. COMPARISON: CHEST 2 VIEW 12/15/2018 9:40 PM. TECHNIQUE: Upper extremity AP view. FINDINGS: Lungs/Pleura: Low lung volumes. Lungs are clear for vascular crowding. No interstitial abnormality. No pneumothorax or gross pleural fluid. Mediastinum: Within exam limitations, the cardiomediastinal contour is normal. Other: Gas in the stomach without abnormal distention. IMPRESSION: Lungs clear accounting for low lung volumes. RADIA
[2019-04-17] MEDS: DEXTROSE 5%-0.45% NACL 1,000 ML IV SCH (14:34)
[2019-04-17] MEDS: SODIUM CHLORIDE FLUSH 0.9% 10 ML SYRINGE IVP PRN ×3 (14:36→21:43)
[2019-04-17 19:27] LABS: BUN - BLOOD UREA NITROGEN 25 mg/dL (6-20); CALCIUM 8.5 mg/dL (8.5-10.3); CARBON DIOXIDE - CO2 27 mmol/L (21-32); CHLORIDE 100 mmol/L (101-111); CREATININE 0.9 mg/dL (0.4-1.0); GFR - MDRD 74 (>89); GLUCOSE 255 mg/dL (70-100); MAGNESIUM 2.2 mg/dL (1.7-2.8); PHOSPHORUS < 1.0 mg/dL (2.5-4.6); SODIUM 140 mmol/L (135-145)
--- NOTE | 2019-04-17 19:41 | ED Physician Documentation ---
ED Addendum - Addendum Addendum: 04/17/19 19:41 I was called to the floor to place an IV in this young woman as she had difficult IV access. On the first attempt I placed a 20-gauge IV in the right deep brachial vein using real-time ultrasound guidance after ChloraPrep it flushed and rogerio well.
[2019-04-17] MEDS: HEPARIN 5,000 UNIT/ML VIAL SUBQ SCH (21:15)
--- NOTE | 2019-04-17 21:54 | ED Physician Documentation ---
ED Addendum - Addendum Addendum: 04/17/19 21:54 The IV I previously placed infiltrated after about an hour, went back to the floor at Dr. Mcconnell's request. I personally placed a right deep brachial midline catheter using full sterile prep and drape using real-time ultrasound guidance. It was a 20-gauge catheter. It flushed and rogerio well.
[2019-04-18] MEDS ORDERED: oxyCODONE 5 MG TABLET PO PRN (00:33)
[2019-04-18] MEDS: DEXTROSE 5%-0.45% NACL 1,000 ML IV SCH ×3 (01:35→19:56)
[2019-04-18 02:34] LABS: BASOPHILS % (AUTO) 0.6 %; HGB - HEMOGLOBIN 11.6 g/dL (12.0-16.0); LYMPHOCYTES % (AUTO) 17.2 %; MEAN CORPUSCULAR HEMOGLOBIN 34.1 pg (27.0-31.0); MEAN CORPUSCULAR HGB CONC 33.6 g/dL (32.0-36.0); MEAN CORPUSCULAR VOLUME 101.5 fL (81.0-99.0); MEAN PLATELET VOLUME 11.8 fL (7.9-10.8); NEUTROPHILS % (AUTO) 75.9 %; PLT - PLATELET COUNT 118 10^3/uL (130-450); RED CELL DISTRIBUTION WIDTH 12.2 % (12.0-15.0); WHITE BLOOD COUNT 3.5 x10^3/uL (4.8-10.8)
[2019-04-18 02:36] LABS: ABNORMAL LYMPHS % (MANUAL) 0 %
[2019-04-18 02:41] LABS: ALBUMIN/GLOBULIN RATIO 1.3 (1.0-2.2); BILIRUBIN,TOTAL 1.2 mg/dL (0.2-1.0); CALCIUM 8.2 mg/dL (8.5-10.3); CREATININE 0.7 mg/dL (0.4-1.0); PHOSPHORUS 1.5 mg/dL (2.5-4.6); TOTAL PROTEIN 7.1 g/dL (6.7-8.2)
[2019-04-18] MEDS ORDERED: POTASSIUM PHOSPHATE 21 MMOL in SODIUM CHLORIDE 0.9% 250 ML IV ONE (02:44)
[2019-04-18 03:12] LABS: BAND NEUTROPHILS % (MANUAL) 15 %; LYMPHOCYTES # (MANUAL) 0.8 10^3/uL (1.5-3.5); LYMPHOCYTES % (MANUAL) 24 %; MONOCYTES # (MANUAL) 0.2 10^3/uL (0.0-1.0)
[2019-04-18 03:15] LABS: RBC MORPHOLOGY (MULTIPLE) NORMAL APPEARANCE (NORMAL)
[2019-04-18 03:17] LABS: DIFFERENTIAL COMMENT MANUAL DIFFERENTIAL; PLATELET ESTIMATE, MANUAL DECREASED (<130,000) (NORMAL); PLATELET MORPHOLOGY NORMAL APPEARANCE (NORMAL)
[2019-04-18 03:19] LABS: FOLATE 7.19 ng/mL (5.90 - >24.8)
[2019-04-18 05:13] LABS: VBG PH 7.473 (7.31-7.41)
[2019-04-18] MEDS ORDERED: CALCIUM GLUCONATE 2,000 MG in SODIUM CHLORIDE 0.9% 100ML 100 ML IV ONE ×2 (05:34→08:00)
[2019-04-18] MEDS: INSULIN REGULAR HUMAN 100 UNIT/1 ML 10 ML MDV SUBQ SCH (06:00)
[2019-04-18] MEDS: SODIUM CHLORIDE FLUSH 0.9% 10 ML SYRINGE IVP PRN (06:31)
[2019-04-18] MEDS: SODIUM CHLORIDE FLUSH 0.9% 10 ML SYRINGE IVP SCH ×3 (06:31→17:10)
[2019-04-18] MEDS: PANTOPRAZOLE 40 MG VIAL IVP SCH (06:31)
[2019-04-18] MEDS ORDERED: MULTIVITAMIN 10 ML, THIAMINE INJ 100 MG, FOLIC ACID INJ 1 MG in SODIUM CHLORIDE 0.9% 1,... IV SCH (09:00)
[2019-04-18] MEDS: HEPARIN 5,000 UNIT/ML VIAL SUBQ SCH ×2 (09:38→20:52)
[2019-04-18] MEDS: INSULIN ASPART 300 UNIT/3 ML PEN SUBQ SCH ×3 (11:58→20:53)
[2019-04-18 12:19] LABS: CALCIUM 8.5 mg/dL (8.5-10.3); CREATININE 0.6 mg/dL (0.4-1.0)
--- NOTE | 2019-04-18 12:21 | PROVIDER PROGRESS NOTE ---
Assessment/Plan - Problem List (1) Alcoholic ketoacidosis Assessment/Plan: pH has improved to normal. Anion gap is still borderline abnormal. Continue with IV fluids and start a Reg diet. Will continue checking fingerstick glucoses and sliding scale insulin coverage (2) Alcohol withdrawal Qualifiers: Complication of substance-induced condition: uncomplicated Qualified Code(s): F10.230 - Alcohol dependence with withdrawal, uncomplicated Assessment/Plan: Yesterday's impression was that srinivas was going through alcohol withdrawal. She was hypertensive, tachycardic, febrile and having visual hallucinations. Her last drink was about 24 hours before admission. She tolerated PRN Ativan doses which were given according to a CIWA scale, no Ativan drip was required overnight. Remain in the ICU, continue CIWA scale assessment, continue PRN Ativan. (3) Alcoholic hepatitis Assessment/Plan: Improving AST and ALT, which were elevated in a 2:1 ratio. (4) Alcohol abuse Assessment/Plan: She has evidence of elevated LFTs and bili, but no synthesis problem with a normal INR. her plt level is lowere today, partly from hemodilution, but marrow suppression from alcohol may be present as well. Continue Banana bag an additional day. Will begin vitamins and oral Thiamine tomorrow. SW consult requested, she is somewhat somnolent yet today to speak with anyone in detail though. (5) Hypophosphatemia Assessment/Plan: It was severely low at admission at 1.0, today increased to 1.5. Likely low PO4 intake, due to alcoholism. Monitor daily and replace if low (6) Hyperglycemia Assessment/Plan: This is likely due to acidosis The high serum glucoses were noted when she was put on D5 iv, and the bicarb drip discontinued. Will continue fingerstick checks and ss Insulin coverage prn (7) Hypertension Qualifiers: Hypertension type: unspecified secondary hypertension Qualified Code(s): I15.9 - Secondary hypertension, unspecified; I15 - Secondary hypertension Assessment/Plan: She was on Clonidine at home. Here, her BP was initially felt to be high due to alcohol withdrawal. Continue Ativan as needed. Will resume her Clonidine as well (8) Tachycardia Assessment/Plan: She presented with sinus tachy at 135, felt to be due to withdrawal. with aggressive crystalloid replacement of intravascular volume, her HR has improved to 120's then 110's. Continue telemetry. Continue iv hydration and Ativan prn. (9) Pancytopenia Assessment/Plan: The WBC, Hgb and plt values all dropped. This is presumed to be due to hemodilution, but alcohol toxicity causing marrow may be present too. The B12 and Folate levels were checked and are adequate. Will run Iron stores and test guiac of stool. Monitor CBC daily. (10) Acute kidney injury Assessment/Plan: Resolved with aggressive crystalloid hydration. (11) Gastritis Assessment/Plan: N/V have improved and a Reg diet has been ordered therefore. She sis not have bloody emesis. - Current Meds Current Meds: Current Medications Generic Name Dose Route Start Last Admin Trade Name Freq PRN Reason Stop Dose Admin Heparin Sodium (Porcine) 5,000 unit 04/17/19 21:00 04/18/19 09:38 SUBQ 5,000 unit BID INDIRA Administration Multivitamins 10 ml/ Thiamine 1,011.2 mls @ 100 mls/hr 04/18/19 09:00 04/18/19 09:39 HCl 100 mg/ Folic Acid 1 mg/ IV 100 mls/hr Sodium Chloride DAILY INDIRA Administration Dextrose/Sodium Chloride 1,000 mls @ 100 mls/hr 04/17/19 15:00 04/18/19 08:27 D5.45ns IV Not Given .Q10H INDIRA Insulin Aspart 1 - 5 unit 04/18/19 12:00 04/18/19 11:58 Novolog SUBQ Not Given 0800,1200,1700,2100 [facility] Protocol Lorazepam 2 mg 04/17/19 12:07 04/17/19 21:41 Ativan Inj (Vial) IVP 2 mg Q30M PRN Administration CIWA >8 Protocol Pantoprazole Sodium 40 mg 04/18/19 07:00 04/18/19 06:31 Protonix IVP 40 mg QDAC INDIRA Administration Sodium Chloride 10 ml 04/17/19 09:00 04/18/19 09:45 Normal Saline Flush 0.9% IVP 10 ml 0100,0900,1700 INDIRA Administration Sodium Chloride 10 ml 04/17/19 07:13 04/18/19 06:31 Normal Saline Flush 0.9% IVP 10 ml PRN PRN Administration NEEDED PER PROVIDER ORDERS - Lab Result Fish Bone Diagrams: 04/18/19 02:16 04/18/19 11:55 - Additional Planning My Orders: My Active Orders 04/18/19 11:07 Blood Glucose Checks - Eating [RC] 0800,1200,1700,2100 04/18/19 12:00 Insulin Aspart [NovoLOG] 1 - 5 unit SUBQ 0800,1200,1700,2100 Subjective - Subjective Patient Reports: No Complaints, Other (Sore throat after vomiting yesterday) Nursing Reports: Sedated, Other (Awakens to eat, falls asleep while conversing) Objective Vital Signs: Vital Signs - 24 hr 04/17/19 04/17/19 04/17/19 13:00 14:00 15:00 Temperature 37.7 C H 37.5 C Heart Rate Heart Rate [ 133 H 132 H 135 H Monitoring electrodes] Respiratory 23 24 24 Rate Blood Pressure 149/110 H 139/90 H 136/98 H [Left Brachial artery] Blood Pressure [Right radial] O2 Saturation 100 100 04/17/19 04/17/19 04/17/19 15:41 16:00 17:00 Temperature Heart Rate Heart Rate [ 134 H 138 H 128 H Monitoring electrodes] Respiratory 12 23 28 H Rate Blood Pressure 144/93 H 148/96 H [Left Brachial artery] Blood Pressure [Right radial] O2 Saturation 100 98 98 04/17/19 04/17/19 04/17/19 18:00 19:00 19:55 Temperature 37.4 C 37.4 C Heart Rate Heart Rate [ 125 H 126 H 124 H Monitoring electrodes] Respiratory 25 H 24 20 Rate Blood Pressure 154/103 H 138/106 H 138/106 H [Left Brachial artery] Blood Pressure [Right radial] O2 Saturation 98 98 99 04/17/19 04/17/19 04/17/19 20:00 21:00 22:00 Temperature Heart Rate Heart Rate [ 124 H 127 H 127 H Monitoring electrodes] Respiratory 24 24 14 Rate Blood Pressure 157/136 H 145/102 H [Left Brachial artery] Blood Pressure 146/101 H [Right radial] O2 Saturation 96 98 100 04/17/19 04/17/19 04/18/19 23:00 23:39 00:00 Temperature 37.3 C Heart Rate Heart Rate [ 134 H 127 H Monitoring electrodes] Respiratory 22 24 Rate Blood Pressure [Left Brachial artery] Blood Pressure 146/101 H 129/102 H [Right radial] O2 Saturation 98 98 04/18/19 04/18/19 04/18/19 01:00 02:00 03:03 Temperature Heart Rate Heart Rate [ 123 H 127 H 115 H Monitoring electrodes] Respiratory 21 22 19 Rate Blood Pressure [Left Brachial artery] Blood Pressure 140/103 H 130/95 H 141/110 H [Right radial] O2 Saturation 100 98 100 04/18/19 04/18/19 04/18/19 03:44 04:00 05:00 Temperature 37.1 C Heart Rate Heart Rate [ 115 H 132 H Monitoring electrodes] Respiratory 22 24 Rate Blood Pressure [Left Brachial artery] Blood Pressure 142/100 H 123/88 H [Right radial] O2 Saturation 100 96 04/18/19 04/18/19 04/18/19 06:00 06:11 07:00 Temperature 37.1 C Heart Rate 137 H Heart Rate [ 122 H 111 H Monitoring electrodes] Respiratory 18 24 25 H Rate Blood Pressure [Left Brachial artery] Blood Pressure 140/110 H 148/91 H [Right radial] O2 Saturation 98 96 100 04/18/19 04/18/19 04/18/19 08:00 09:00 10:00 Temperature 37.2 C Heart Rate Heart Rate [ 119 H 111 H 124 H Monitoring electrodes] Respiratory 21 18 19 Rate Blood Pressure [Left Brachial artery] Blood Pressure 140/85 H 116/116 H 158/99 H [Right radial] O2 Saturation 97 98 98 04/18/19 04/18/19 11:00 12:00 Temperature Heart Rate Heart Rate [ 125 H 104 H Monitoring electrodes] Respiratory 17 26 H Rate Blood Pressure [Left Brachial artery] Blood Pressure 138/91 H 138/91 H [Right radial] O2 Saturation 98 99 Oxygen O2 Source Room air I&O (Last 24 Hrs): Intake and Output Totals x24h 04/16/19 04/17/19 04/18/19 23:59 23:59 23:59 Intake Total 6231.167 1230.3667 Output Total 2750 250 Balance 3481.831 671.5513 General: Alert, Other (Appears tired) HEENT: Atraumatic, Mucous membr. moist/pink Neck: Supple, No JVD Neuro: Non Focal Cardiovascular: Regular rate Respiratory: No respiratory distress Abdomen: Soft Extremities: No edema - Results Results: Laboratory Results WBC 3.5 x10^3/uL (4.8-10.8) L 04/18/19 02:16 RBC 3.40 10^6/uL (4.20-5.40) L 04/18/19 02:16 Hgb 11.6 g/dL (12.0-16.0) L 04/18/19 02:16 Hct 34.5 % (37.0-47.0) L 04/18/19 02:16 MCV 101.5 fL (81.0-99.0) H 04/18/19 02:16 MCH 34.1 pg (27.0-31.0) H 04/18/19 02:16 MCHC 33.6 g/dL (32.0-36.0) 04/18/19 02:16 RDW 12.2 % (12.0-15.0) 04/18/19 02:16 Plt Count 118 10^3/uL (130-450) L 04/18/19 02:16 MPV 11.8 fL (7.9-10.8) H 04/18/19 02:16 Neut # (Auto) Not Reportable 04/18/19 02:16 Lymph # (Auto) Not Reportable 04/18/19 02:16 Stevens # (Auto) Not Reportable 04/18/19 02:16 Eos # (Auto) Not Reportable 04/18/19 02:16 Baso # (Auto) Not Reportable 04/18/19 02:16 Absolute Nucleated RBC Not Reportable 04/18/19 02:16 Total Counted 100 04/18/19 02:16 Band Neuts % (Manual) 15 % (0-10) H 04/18/19 02:16 Abnorm Lymph % (Manual) 0 % 04/18/19 02:16 Nucleated RBC % Not Reportable 04/18/19 02:16 Neutrophils # (Manual) 2.4 10^3/uL (1.5-6.6) 04/18/19 02:16 Lymphocytes # (Manual) 0.8 10^3/uL (1.5-3.5) L 04/18/19 02:16 Monocytes # (Manual) 0.2 10^3/uL (0.0-1.0) 04/18/19 02:16 Eosinophils # (Manual) 0.0 10^3/uL (0-0.7) 04/18/19 02:16 Basophils # (Manual) 0.0 10^3/uL (0-0.1) 04/18/19 02:16 Differential Comment MANUAL DIFFERENTIAL 04/18/19 02:16 WBC Morphology NORMAL APPEARANCE (NORMAL) 04/18/19 02:16 Platelet Estimate DECREASED (<130,000) (NORMAL) 04/18/19 02:16 Platelet Morphology NORMAL APPEARANCE (NORMAL) 04/18/19 02:16 RBC Morph Micro Appear NORMAL APPEARANCE (NORMAL) 04/18/19 02:16 PT 12.6 secs (9.9-12.6) 04/17/19 05:25 INR 1.1 (0.8-1.2) 04/17/19 05:25 VBG pH 7.473 (7.31-7.41) H 04/18/19 04:40 VBG pCO2 27.2 mmHg (41-51) L 04/17/19 06:36 VBG pO2 77.8 mmHg (25-47) H 04/17/19 06:36 VBG HCO3 5.3 mmol/L (23-28) L 04/17/19 06:36 VBG Total CO2 6.1 mmol/L (24-29) L 04/17/19 06:36 VBG O2 Saturation 90.4 % (60-80) H 04/17/19 06:36 VBG Base Excess -26.5 mmol/L (-2 - +2) L 04/17/19 06:36 Ionized Calcium 0.98 mmol/L (1.15-1.33) L 04/18/19 04:40 Sodium 139 mmol/L (135-145) 04/18/19 11:55 Potassium 3.6 mmol/L (3.5-5.0) 04/18/19 11:55 Chloride 102 mmol/L (101-111) 04/18/19 11:55 Carbon Dioxide 26 mmol/L (21-32) 04/18/19 11:55 Anion Gap 11.0 (6-13) 04/18/19 11:55 BUN 19 mg/dL (6-20) 04/18/19 11:55 Creatinine 0.6 mg/dL (0.4-1.0) 04/18/19 11:55 Estimated GFR (MDRD) 117 (>89) 04/18/19 11:55 Glucose 127 mg/dL (70-100) H 04/18/19 11:55 Lactic Acid 2.2 mmol/L (0.5-2.2) 04/17/19 12:17 Calcium 8.5 mg/dL (8.5-10.3) 04/18/19 11:55 Phosphorus 1.5 mg/dL (2.5-4.6) L 04/18/19 02:16 Magnesium 2.0 mg/dL (1.7-2.8) 04/18/19 02:16 Total Bilirubin 1.2 mg/dL (0.2-1.0) H 04/18/19 02:16 Direct Bilirubin 0.6 mg/dL (0.1-0.5) H 04/17/19 13:31 AST 112 IU/L (10-42) H 04/18/19 02:16 ALT 60 IU/L (10-60) 04/18/19 02:16 Alkaline Phosphatase 66 IU/L (42-121) 04/18/19 02:16 Total Creatine Kinase 78 IU/L (22-269) 04/17/19 12:17 Total Protein 7.1 g/dL (6.7-8.2) 04/18/19 02:16 Albumin 4.0 g/dL (3.2-5.5) 04/18/19 02:16 Globulin 3.1 g/dL (2.1-4.2) 04/18/19 02:16 Albumin/Globulin Ratio 1.3 (1.0-2.2) 04/18/19 02:16 Lipase 29 U/L (22-51) 04/17/19 05:25 Vitamin B12 821 pg/mL (180-914) 04/18/19 02:16 Folate 7.19 ng/mL (5.90 - >24.8) 04/18/19 02:16 Urine Color YELLOW 04/17/19 08:30 Urine Clarity HAZY (CLEAR) 04/17/19 08:30 Urine pH 5.5 PH (5.0-7.5) 04/17/19 08:30 Ur Specific [place] >=1.030 (1.002-1.030) H 04/17/19 08:30 Urine Protein 100 mg/dL (NEGATIVE) H 04/17/19 08:30 Urine Glucose (UA) NEGATIVE mg/dL (NEGATIVE) 04/17/19 08:30 Urine Ketones 40 mg/dL (NEGATIVE) H 04/17/19 08:30 Urine Occult Blood MODERATE (NEGATIVE) H 04/17/19 08:30 Urine Nitrite NEGATIVE (NEGATIVE) 04/17/19 08:30 Urine Bilirubin NEGATIVE (NEGATIVE) 04/17/19 08:30 Urine Urobilinogen 0.2 (NORMAL) E.U./dL (NORMAL) 04/17/19 08:30 Ur Leukocyte Esterase NEGATIVE (NEGATIVE) 04/17/19 08:30 Urine RBC 0-5 /HPF (0-5) 04/17/19 08:30 Urine WBC 0-3 /HPF (0-5) 04/17/19 08:30 Ur Squamous Epith Cells MANY Squamous (<= Few) H 04/17/19 08:30 Urine Bacteria Few /HPF (None Seen) 04/17/19 08:30 Ur Microscopic Review INDICATED 04/17/19 08:30 Urine Culture Comments NOT INDICATED 04/17/19 08:30 Urine HCG, Qual NEGATIVE 04/17/19 08:30 Nasal Screen MRSA (PCR) NEGATIVE (NEGATIVE) 04/17/19 08:30 Salicylates < 6.0 mg/dL 04/17/19 05:25 Urine Opiates Screen NEGATIVE (NEGATIVE) 04/17/19 08:30 Ur Oxycodone Screen NEGATIVE (NEGATIVE) 04/17/19 08:30 Urine Methadone Screen NEGATIVE (NEGATIVE) 04/17/19 08:30 Ur Propoxyphene Screen NEGATIVE (NEGATIVE) 04/17/19 08:30 Acetaminophen < 10 ug/mL (10-30) L 04/17/19 05:25 Ur Barbiturates Screen NEGATIVE (NEGATIVE) 04/17/19 08:30 Ur Tricyclics Screen NEGATIVE (NEGATIVE) 04/17/19 08:30 Ur Phencyclidine Scrn NEGATIVE (NEGATIVE) 04/17/19 08:30 Ur Amphetamine Screen POSITIVE (NEGATIVE) H 04/17/19 08:30 U Methamphetamines Scrn POSITIVE (NEGATIVE) H 04/17/19 08:30 U Benzodiazepines Scrn POSITIVE (NEGATIVE) H 04/17/19 08:30 Urine Cocaine Screen NEGATIVE (NEGATIVE) 04/17/19 08:30 U Cannabinoids Screen NEGATIVE (NEGATIVE) 04/17/19 08:30 Ethyl Alcohol > 1100.0 mg/dL H* 04/17/19 05:25 Serum Ketones SMALL (NEGATIVE) H 04/17/19 05:25
[2019-04-18 13:11] LABS: HB2 TOTAL 11.1 g/dL; HEMOGLOBIN A1C 0.4 g/dL; HEMOGLOBIN A1C % 5.4 % (4.6-6.2)
[2019-04-18] MEDS: CALCIUM CARBONATE CHEW 500 MG TABLET PO SCH (20:53)
[2019-04-18] MEDS ORDERED: METOPROLOL 5 MG/5 ML VIAL IVP STA (21:17)
[2019-04-19] MEDS: LORazepam 2 MG/ML VIAL IVP PRN (00:59)
[2019-04-19] MEDS: SODIUM CHLORIDE FLUSH 0.9% 10 ML SYRINGE IVP SCH ×3 (00:59→17:46)
[2019-04-19] MEDS: PANTOPRAZOLE 40 MG VIAL IVP SCH (05:40)
[2019-04-19] MEDS: CALCIUM CARBONATE CHEW 500 MG TABLET PO SCH (05:40)
[2019-04-19] MEDS: DEXTROSE 5%-0.45% NACL 1,000 ML IV SCH (05:40)
[2019-04-19 05:47] LABS: ALBUMIN 3.7 g/dL (3.2-5.5); ALBUMIN/GLOBULIN RATIO 1.3 (1.0-2.2); BILIRUBIN,TOTAL 0.7 mg/dL (0.2-1.0); CALCIUM 8.2 mg/dL (8.5-10.3); CREATININE 0.5 mg/dL (0.4-1.0); MAGNESIUM 1.5 mg/dL (1.7-2.8); PHOSPHORUS 1.6 mg/dL (2.5-4.6); TOTAL PROTEIN 6.5 g/dL (6.7-8.2)
[2019-04-19 05:48] LABS: BASOPHILS % (AUTO) 0.4 %; EOSINOPHILS # (AUTO) 0.1 10^3/uL (0.0-0.7); EOSINOPHILS % (AUTO) 1.1 %; HGB - HEMOGLOBIN 10.7 g/dL (12.0-16.0); LYMPHOCYTES # (AUTO) 1.7 10^3/uL (1.5-3.5); MEAN CORPUSCULAR HEMOGLOBIN 34.2 pg (27.0-31.0); MEAN CORPUSCULAR HGB CONC 35.1 g/dL (32.0-36.0); MEAN CORPUSCULAR VOLUME 97.4 fL (81.0-99.0); MEAN PLATELET VOLUME 11.7 fL (7.9-10.8); MONOCYTES # (AUTO) 0.2 10^3/uL (0.0-1.0); NEUTROPHILS # (AUTO) 2.6 10^3/uL (1.5-6.6); NEUTROPHILS % (AUTO) 56.8 %; PLT - PLATELET COUNT 99 10^3/uL (130-450); RED BLOOD COUNT 3.13 10^6/uL (4.20-5.40); RED CELL DISTRIBUTION WIDTH 11.9 % (12.0-15.0); WHITE BLOOD COUNT 4.5 x10^3/uL (4.8-10.8)
[2019-04-19] MEDS ORDERED: POTASSIUM CHLORIDE 20 MEQ TABLET PO ONE (06:08)
[2019-04-19] MEDS ORDERED: METOPROLOL 5 MG/5 ML VIAL IVP STA (06:19)
[2019-04-19] MEDS: NEUTRA-PHOS 250 MG TABLET PO SCH ×2 (06:54→12:52)
[2019-04-19] MEDS: MAGNESIUM OXIDE 400 MG TABLET PO SCH ×2 (06:54→12:51)
[2019-04-19] MEDS: PHENOL THROAT SPRAY 177 ML MM PRN ×2 (07:46→13:04)
[2019-04-19] MEDS ORDERED: LORazepam 2 MG/ML VIAL IVP PRN (07:47)
[2019-04-19] MEDS ORDERED: CALCIUM CARBONATE CHEW 500 MG TABLET PO PRN (07:48)
--- NOTE | 2019-04-19 07:51 | PROVIDER PROGRESS NOTE ---
Assessment/Plan - Problem List (1) Alcohol withdrawal Qualifiers: Complication of substance-induced condition: uncomplicated Qualified Code(s): F10.230 - Alcohol dependence with withdrawal, uncomplicated Assessment/Plan: Will spread out her prn Ativan for the CIWA scale, in order for her to be more awake. Will decrease iv fluids Encourage OOB to chair. When she is more awake, SW to see later today (patient wants tonight or tomorrow). (2) Alcoholic hepatitis Assessment/Plan: Improving (3) Alcohol abuse Assessment/Plan: As in #1 And will restart the Clonidine she was listed as being on as an outpatient, Clonidine 0.1 mg po bid. Will change Banana Bag to oral vitamins and oral Thiamine. (4) Hypophosphatemia Assessment/Plan: Correct and follow daily in labs (5) Hypertension Qualifiers: Hypertension type: unspecified secondary hypertension Qualified Code(s): I15.9 - Secondary hypertension, unspecified; I15 - Secondary hypertension Assessment/Plan: I suspect the withdrawal amd being off Clonidine caused a rebound of HTN and elevated heart rate. Will restart the Clonidone she was listed as being on as an outpatient, Clonidine 0.1 mg po bid. (6) Tachycardia Assessment/Plan: She needed 2 doses of iv Lopressor overnight. I suspect the withdrawal and being off Clonidine caused a rebound of HTN and elevated heart rate. (7) Sore throat Assessment/Plan: Chloraseptic throat spray is not helping and she was requesting "pain pills for the pain" this morning, then had no pain by afternoon. Will treat with Tylenol prn, watching LFTs, and not NSAIDs due to low plts. (8) Gastritis Assessment/Plan: No further N/V, but she has a sore throat, probably from vomiting, and Chloraseptic was prescribed. Will change her gastric ulcer prophylaxis to po Pepcid and change CaCarbonate to TUMS prn heartburn. (9) Anemia Assessment/Plan: She is on vitamin and Thiamine. B12, Folate levels were adequate. Will check Iron stores. Will order guaic of stool Watching the low plts, but no signs of bleeding currently. (10) Thrombocytopenia Assessment/Plan: Watching the low plts, but no signs of bleeding currently. Will continue SCDs and stop heparin sq bid for DVT prophylaxis. (11) Alcoholic ketoacidosis Assessment/Plan: Resolved after iv Insulin, iv bicarb, iv D5 and crystalloids. (12) Hyperglycemia Assessment/Plan: Resolved as her acidosis corrected (13) Acute kidney injury Assessment/Plan: Resolved - Current Meds Current Meds: Current Medications Generic Name Dose Route Start Last Admin Trade Name Freq PRN Reason Stop Dose Admin Heparin Sodium (Porcine) 5,000 unit 04/17/19 21:00 04/18/19 20:52 SUBQ 5,000 unit BID INDIRA Administration Magnesium Oxide 400 mg 04/19/19 07:00 04/19/19 06:54 Mag Ox PO 04/19/19 13:01 400 mg Q6H INDIRA Administration Protocol Phenol/Menthol 2 sprays 04/19/19 07:25 04/19/19 07:46 Chloraseptic MM 2 sprays Q2HR PRN Administration Throat Pain Sodium Chloride 10 ml 04/17/19 09:00 04/19/19 00:59 Normal Saline Flush 0.9% IVP 10 ml 0100,0900,1700 INDIRA Administration Sodium Chloride 10 ml 04/17/19 07:13 04/18/19 06:31 Normal Saline Flush 0.9% IVP 10 ml PRN PRN Administration NEEDED PER PROVIDER ORDERS Sodium Phosphate 250 mg 04/19/19 07:00 04/19/19 06:54 K-Phos Neutral PO 04/19/19 09:01 250 mg Q2H INDIRA Administration Protocol - Lab Result Fish Bone Diagrams: 04/19/19 05:30 04/19/19 05:30 - Additional Planning My Orders: My Active Orders 04/19/19 07:25 Phenol [Chloraseptic] 2 sprays MM Q2HR PRN 04/19/19 07:45 Miscellaenous Nursing Order [RC] QSHIFT 04/19/19 07:47 LORazepam INJ [Ativan Inj (Vial)] 2 mg IVP Q2H PRN 04/19/19 07:48 Calcium Carbonate [Tums] 500 mg PO TID PRN 04/19/19 08:00 Famotidine [Pepcid] 20 mg PO BID Vitamin [Trinatal Rx 1] 1 tab PO DAILYWM Thiamine [Vitamin B-1] 100 mg PO DAILY cloNIDine [Catapres] 0.1 mg PO BID Subjective - Subjective Patient Reports: Other (Sore throat, 7/10 in severity this a.m, none this afternoon. Is too tired to get OOB.) Objective Vital Signs: Vital Signs - 24 hr 04/18/19 04/18/19 04/18/19 08:00 09:00 10:00 Temperature 37.2 C Heart Rate [ 119 H 111 H 124 H Monitoring electrodes] Respiratory 21 18 19 Rate Blood Pressure Blood Pressure 140/85 H 116/116 H 158/99 H [Right radial] O2 Saturation 97 98 98 04/18/19 04/18/19 04/18/19 11:00 12:00 13:00 Temperature 37.1 C Heart Rate [ 125 H 104 H 114 H Monitoring electrodes] Respiratory 17 26 H 24 Rate Blood Pressure Blood Pressure 138/91 H 138/91 H 142/98 H [Right radial] O2 Saturation 98 99 98 04/18/19 04/18/19 04/18/19 14:00 15:00 16:00 Temperature Heart Rate [ 115 H 113 H 100 Monitoring electrodes] Respiratory 18 20 19 Rate Blood Pressure Blood Pressure 143/100 H 154/107 H 132/86 H [Right radial] O2 Saturation 99 99 99 04/18/19 04/18/19 04/18/19 17:00 18:00 19:00 Temperature 37.2 C Heart Rate [ 107 H 90 90 Monitoring electrodes] Respiratory 20 18 100 H Rate Blood Pressure Blood Pressure 132/86 H 157/101 H 156/99 H [Right radial] O2 Saturation 99 100 04/18/19 04/18/19 04/18/19 20:00 21:00 21:28 Temperature 37 C Heart Rate [ 94 108 H Monitoring electrodes] Respiratory 17 20 Rate Blood Pressure 160/107 H Blood Pressure 163/112 H 160/107 H [Right radial] O2 Saturation 100 98 04/18/19 04/18/19 04/18/19 21:29 21:32 21:40 Temperature Heart Rate [ 106 H 97 92 Monitoring electrodes] Respiratory 16 20 18 Rate Blood Pressure Blood Pressure 157/106 H 146/98 H 139/94 H [Right radial] O2 Saturation 98 100 99 04/18/19 04/18/19 04/19/19 22:00 23:00 00:00 Temperature 37.5 C Heart Rate [ 88 85 98 Monitoring electrodes] Respiratory 16 18 16 Rate Blood Pressure Blood Pressure 150/98 H 145/101 H 148/99 H [Right radial] O2 Saturation 100 100 100 04/19/19 04/19/19 04/19/19 01:00 02:00 03:00 Temperature Heart Rate [ 103 H 100 98 Monitoring electrodes] Respiratory 20 16 16 Rate Blood Pressure Blood Pressure 145/105 H 133/96 H 154/112 H [Right radial] O2 Saturation 100 100 99 04/19/19 04/19/19 04/19/19 04:00 05:00 06:00 Temperature 37.4 C Heart Rate [ 100 98 104 H Monitoring electrodes] Respiratory 18 20 19 Rate Blood Pressure Blood Pressure 149/110 H 145/102 H 157/106 H [Right radial] O2 Saturation 100 98 98 04/19/19 04/19/19 04/19/19 06:29 06:31 07:00 Temperature Heart Rate [ 92 97 Monitoring electrodes] Respiratory 20 16 Rate Blood Pressure 145/103 H Blood Pressure 145/103 H 157/115 H [Right radial] O2 Saturation 100 99 Oxygen O2 Source Room air I&O (Last 24 Hrs): Intake and Output Totals x24h 04/17/19 04/18/19 04/19/19 23:59 23:59 23:59 Intake Total 6231.167 3469.8997 1033.333 Output Total 2750 2100 1500 Balance 3481.167 1369.8997 -466.667 General: Alert (Appears tired.), Oriented x3, Other (Throat is not red or have any swelling.) HEENT: Mucous membr. moist/pink, Other Neck: Supple, No JVD Neuro: Non Focal Cardiovascular: Regular rate, No murmurs Respiratory: No respiratory distress, Breath sounds nml Abdomen: Normal bowel sounds, Soft Extremities: No edema - Results Results: Laboratory Results WBC 4.5 x10^3/uL (4.8-10.8) L 04/19/19 05:30 RBC 3.13 10^6/uL (4.20-5.40) L 04/19/19 05:30 Hgb 10.7 g/dL (12.0-16.0) L 04/19/19 05:30 Hct 30.5 % (37.0-47.0) L 04/19/19 05:30 MCV 97.4 fL (81.0-99.0) 04/19/19 05:30 MCH 34.2 pg (27.0-31.0) H 04/19/19 05:30 MCHC 35.1 g/dL (32.0-36.0) 04/19/19 05:30 RDW 11.9 % (12.0-15.0) L 04/19/19 05:30 Plt Count 99 10^3/uL (130-450) L 04/19/19 05:30 MPV 11.7 fL (7.9-10.8) H 04/19/19 05:30 Neut # (Auto) 2.6 10^3/uL (1.5-6.6) 04/19/19 05:30 Lymph # (Auto) 1.7 10^3/uL (1.5-3.5) 04/19/19 05:30 Dixon # (Auto) 0.2 10^3/uL (0.0-1.0) 04/19/19 05:30 Eos # (Auto) 0.1 10^3/uL (0.0-0.7) 04/19/19 05:30 Baso # (Auto) 0.0 10^3/uL (0.0-0.1) 04/19/19 05:30 Absolute Nucleated RBC 0.00 x10^3/uL 04/19/19 05:30 Total Counted 100 04/18/19 02:16 Band Neuts % (Manual) 15 % (0-10) H 04/18/19 02:16 Abnorm Lymph % (Manual) 0 % 04/18/19 02:16 Nucleated RBC % 0.0 /100WBC 04/19/19 05:30 Neutrophils # (Manual) 2.4 10^3/uL (1.5-6.6) 04/18/19 02:16 Lymphocytes # (Manual) 0.8 10^3/uL (1.5-3.5) L 04/18/19 02:16 Monocytes # (Manual) 0.2 10^3/uL (0.0-1.0) 04/18/19 02:16 Eosinophils # (Manual) 0.0 10^3/uL (0-0.7) 04/18/19 02:16 Basophils # (Manual) 0.0 10^3/uL (0-0.1) 04/18/19 02:16 Differential Comment MANUAL DIFFERENTIAL 04/18/19 02:16 WBC Morphology NORMAL APPEARANCE (NORMAL) 04/18/19 02:16 Platelet Estimate DECREASED (<130,000) (NORMAL) 04/18/19 02:16 Platelet Morphology NORMAL APPEARANCE (NORMAL) 04/18/19 02:16 RBC Morph Micro Appear NORMAL APPEARANCE (NORMAL) 04/18/19 02:16 PT 12.6 secs (9.9-12.6) 04/17/19 05:25 INR 1.1 (0.8-1.2) 04/17/19 05:25 VBG pH 7.473 (7.31-7.41) H 04/18/19 04:40 VBG pCO2 27.2 mmHg (41-51) L 04/17/19 06:36 VBG pO2 77.8 mmHg (25-47) H 04/17/19 06:36 VBG HCO3 5.3 mmol/L (23-28) L 04/17/19 06:36 VBG Total CO2 6.1 mmol/L (24-29) L 04/17/19 06:36 VBG O2 Saturation 90.4 % (60-80) H 04/17/19 06:36 VBG Base Excess -26.5 mmol/L (-2 - +2) L 04/17/19 06:36 Ionized Calcium 0.98 mmol/L (1.15-1.33) L 04/18/19 04:40 Sodium 139 mmol/L (135-145) 04/19/19 05:30 Potassium 3.1 mmol/L (3.5-5.0) L 04/19/19 05:30 Chloride 102 mmol/L (101-111) 04/19/19 05:30 Carbon Dioxide 28 mmol/L (21-32) 04/19/19 05:30 Anion Gap 9.0 (6-13) 04/19/19 05:30 BUN 8 mg/dL (6-20) 04/19/19 05:30 Creatinine 0.5 mg/dL (0.4-1.0) 04/19/19 05:30 Estimated GFR (MDRD) 145 (>89) 04/19/19 05:30 Glucose 134 mg/dL (70-100) H 04/19/19 05:30 Glycated Hemoglobin 5.4 % (4.6-6.2) 04/18/19 12:50 Estim Average Glucose 108 (70-100) H 04/18/19 12:50 Lactic Acid 2.2 mmol/L (0.5-2.2) 04/17/19 12:17 Calcium 8.2 mg/dL (8.5-10.3) L 04/19/19 05:30 Phosphorus 1.6 mg/dL (2.5-4.6) L 04/19/19 05:30 Magnesium 1.5 mg/dL (1.7-2.8) L 04/19/19 05:30 Total Bilirubin 0.7 mg/dL (0.2-1.0) 04/19/19 05:30 Direct Bilirubin 0.6 mg/dL (0.1-0.5) H 04/17/19 13:31 AST 101 IU/L (10-42) H 04/19/19 05:30 ALT 49 IU/L (10-60) 04/19/19 05:30 Alkaline Phosphatase 64 IU/L (42-121) 04/19/19 05:30 Total Creatine Kinase 78 IU/L (22-269) 04/17/19 12:17 Total Protein 6.5 g/dL (6.7-8.2) L 04/19/19 05:30 Albumin 3.7 g/dL (3.2-5.5) 04/19/19 05:30 Globulin 2.8 g/dL (2.1-4.2) 04/19/19 05:30 Albumin/Globulin Ratio 1.3 (1.0-2.2) 04/19/19 05:30 Lipase 29 U/L (22-51) 04/17/19 05:25 Vitamin B12 821 pg/mL (180-914) 04/18/19 02:16 Folate 7.19 ng/mL (5.90 - >24.8) 04/18/19 02:16 Urine Color YELLOW 04/17/19 08:30 Urine Clarity HAZY (CLEAR) 04/17/19 08:30 Urine pH 5.5 PH (5.0-7.5) 04/17/19 08:30 Ur Specific [place] >=1.030 (1.002-1.030) H 04/17/19 08:30 Urine Protein 100 mg/dL (NEGATIVE) H 04/17/19 08:30 Urine Glucose (UA) NEGATIVE mg/dL (NEGATIVE) 04/17/19 08:30 Urine Ketones 40 mg/dL (NEGATIVE) H 04/17/19 08:30 Urine Occult Blood MODERATE (NEGATIVE) H 04/17/19 08:30 Urine Nitrite NEGATIVE (NEGATIVE) 04/17/19 08:30 Urine Bilirubin NEGATIVE (NEGATIVE) 04/17/19 08:30 Urine Urobilinogen 0.2 (NORMAL) E.U./dL (NORMAL) 04/17/19 08:30 Ur Leukocyte Esterase NEGATIVE (NEGATIVE) 04/17/19 08:30 Urine RBC 0-5 /HPF (0-5) 04/17/19 08:30 Urine WBC 0-3 /HPF (0-5) 04/17/19 08:30 Ur Squamous Epith Cells MANY Squamous (<= Few) H 04/17/19 08:30 Urine Bacteria Few /HPF (None Seen) 04/17/19 08:30 Ur Microscopic Review INDICATED 04/17/19 08:30 Urine Culture Comments NOT INDICATED 04/17/19 08:30 Urine HCG, Qual NEGATIVE 04/17/19 08:30 Nasal Screen MRSA (PCR) NEGATIVE (NEGATIVE) 04/17/19 08:30 Salicylates < 6.0 mg/dL 04/17/19 05:25 Urine Opiates Screen NEGATIVE (NEGATIVE) 04/17/19 08:30 Ur Oxycodone Screen NEGATIVE (NEGATIVE) 04/17/19 08:30 Urine Methadone Screen NEGATIVE (NEGATIVE) 04/17/19 08:30 Ur Propoxyphene Screen NEGATIVE (NEGATIVE) 04/17/19 08:30 Acetaminophen < 10 ug/mL (10-30) L 04/17/19 05:25 Ur Barbiturates Screen NEGATIVE (NEGATIVE) 04/17/19 08:30 Ur Tricyclics Screen NEGATIVE (NEGATIVE) 04/17/19 08:30 Ur Phencyclidine Scrn NEGATIVE (NEGATIVE) 04/17/19 08:30 Ur Amphetamine Screen POSITIVE (NEGATIVE) H 04/17/19 08:30 U Methamphetamines Scrn POSITIVE (NEGATIVE) H 04/17/19 08:30 U Benzodiazepines Scrn POSITIVE (NEGATIVE) H 04/17/19 08:30 Urine Cocaine Screen NEGATIVE (NEGATIVE) 04/17/19 08:30 U Cannabinoids Screen NEGATIVE (NEGATIVE) 04/17/19 08:30 Ethyl Alcohol > 1100.0 mg/dL H* 04/17/19 05:25 Serum Ketones SMALL (NEGATIVE) H 04/17/19 05:25 ABX Reporting Has patient been on IV antibiotics over the past 48 hours?: No
[2019-04-19] MEDS: PRENATAL VITAMIN TABLET PO SCH (08:37)
[2019-04-19] MEDS: cloNIDine 0.1 MG TABLET PO SCH ×2 (08:37→21:08)
[2019-04-19] MEDS: THIAMINE 100 MG TABLET PO SCH (08:37)
[2019-04-19] MEDS: FAMOTIDINE 20 MG TABLET PO SCH ×3 (08:37→21:08)
[2019-04-19] MEDS: SODIUM CHLORIDE FLUSH 0.9% 10 ML SYRINGE IVP PRN (08:46)
[2019-04-19] MEDS ORDERED: ENOXAPARIN 40 MG/0.4 ML SYRINGE SUBQ SCH (09:00)
[2019-04-19] MEDS ORDERED: ACETAMINOPHEN 500 MG TABLET PO PRN (12:20)
[2019-04-19] MEDS: METOPROLOL SUCCINATE 25 MG TABLET PO SCH (12:48)
[2019-04-20] MEDS: SODIUM CHLORIDE FLUSH 0.9% 10 ML SYRINGE IVP SCH ×2 (02:48→08:20)
[2019-04-20 05:27] LABS: BASOPHILS % (AUTO) 0.3 %; EOSINOPHILS % (AUTO) 1.6 %; HGB - HEMOGLOBIN 10.5 g/dL (12.0-16.0); LYMPHOCYTES % (AUTO) 38.8 %; MEAN CORPUSCULAR HEMOGLOBIN 33.4 pg (27.0-31.0); MEAN CORPUSCULAR HGB CONC 34.1 g/dL (32.0-36.0); MEAN CORPUSCULAR VOLUME 98.1 fL (81.0-99.0); MEAN PLATELET VOLUME 11.3 fL (7.9-10.8); MONOCYTES % (AUTO) 5.1 %; NEUTROPHILS % (AUTO) 53.7 %; PLT - PLATELET COUNT 109 10^3/uL (130-450); RED BLOOD COUNT 3.14 10^6/uL (4.20-5.40); WHITE BLOOD COUNT 3.8 x10^3/uL (4.8-10.8)
[2019-04-20 05:36] LABS: ALBUMIN 3.6 g/dL (3.2-5.5); ALBUMIN/GLOBULIN RATIO 1.1 (1.0-2.2); BILIRUBIN,TOTAL 0.6 mg/dL (0.2-1.0); CALCIUM 8.2 mg/dL (8.5-10.3); CREATININE 0.4 mg/dL (0.4-1.0); MAGNESIUM 1.4 mg/dL (1.7-2.8); TOTAL PROTEIN 6.9 g/dL (6.7-8.2)
[2019-04-20 05:37] LABS: ABNORMAL LYMPHS % (MANUAL) 0 %
[2019-04-20 05:55] LABS: BAND NEUTROPHILS % (MANUAL) 10 %; DIFFERENTIAL COMMENT MANUAL DIFFERENTIAL; LYMPHOCYTES % (MANUAL) 27 %; MONOCYTES # (MANUAL) 0.2 10^3/uL (0.0-1.0); PLATELET ESTIMATE, MANUAL DECREASED (<130,000) (NORMAL); RBC MORPHOLOGY (MULTIPLE) NORMAL APPEARANCE (NORMAL)
[2019-04-20] MEDS ORDERED: POTASSIUM CHLORIDE 20 MEQ TABLET PO SCH (07:14)
--- NOTE | 2019-04-20 07:55 | Discharge Plan ---
Discharge Plan Problem Reviewed?: Yes Disposition: Home, Self Care Condition: Stable Prescriptions: cloNIDine [Catapres] 0.1 mg PO BID #60 tablet Nicotine 14 mg Patch [Nicoderm] 1 each TOP Q24H #14 patch Vit #76/Iron,Carb/FA [Pnv 29-1 Tablet] 1 each PO DAILY #30 tablet Thiamine [Vitamin B-1] 100 mg PO DAILY #30 tablet Diet: Regular Activity Restrictions: Activity as Tolerated Shower Restrictions: No Driving Restrictions: Yes (No driving while under the influence of drugs or alcohol!) Instruction Topics: Thiamine Vitamin B1 tablets, Nicotine skin patches, Vitamin and Mineral Combinations oral solid dosage forms, Clonidine tablets, Abuse Alcohol Life After Combat, Addiction Alcohol, Addiction Tx Options, Alcohol Drug Use Suspect Ch Health Concerns: Admitted with alcohol withdrawal and Meth intoxication. Plan of Treatment: STOP drinking alcohol excessively and using Meth. The Security Control Assessor met with you and provided resources to help with that. Your liver does not have cirrhosis yet, so you could still improve. New prescriptions were e-sent to your pharmacy for a taking a multi-vitamin, Thiamine replacement, Clonidine for high BP and it helps with alcohol abuse, and a Nicotine Patch prescription. Care Goals: As described above. Assessment: The patient listened to the plan, but told the Security Control Assessor that she has no intention of "quitting". Additional Instructions or Follow Up instructions: You should have a PCP, for help with treating alcohol and drug abuse, smoking cessation, and medication refills No Smoking: If you smoke, Please STOP! Call for help.
[2019-04-20] MEDS ORDERED: MAGNESIUM OXIDE 400 MG TABLET PO SCH ×2 (08:00)
[2019-04-20] MEDS ORDERED: NEUTRA-PHOS 250 MG TABLET PO SCH (08:00)
[2019-04-20] MEDS: PHENOL THROAT SPRAY 177 ML MM PRN (08:09)
[2019-04-20] MEDS: THIAMINE 100 MG TABLET PO SCH (08:15)
[2019-04-20] MEDS: PRENATAL VITAMIN TABLET PO SCH (08:15)
[2019-04-20] MEDS: FAMOTIDINE 20 MG TABLET PO SCH (08:16)
[2019-04-20] MEDS: cloNIDine 0.1 MG TABLET PO SCH (08:16)
[2019-04-20] MEDS: NEUTRA-PHOS 250 MG TABLET PO SCH ×2 (08:16→09:39)
[2019-04-20] MEDS: METOPROLOL SUCCINATE 25 MG TABLET PO SCH (08:17)
[2019-04-20 09:49] LABS: % IRON SATURATION 27 % (20-50); IRON 67 ug/dL (28-170); TOTAL IRON BINDING CAPACITY 245 ug/dL (250-450); TRANSFERRIN 175 mg/dL (192-382)
[2019-04-20 19:03] VITALS: BP 122/109
--- NOTE | 2019-04-25 11:53 | DISCHARGE SUMMARY ---
Discharge Summary Admit Date: 04/17/19 Discharge Date: 05/21/19 Discharging Provider: Dr Christina Trinidad Primary Care Provider: No established PCP Code Status: Attempt Resuscitation Condition at Discharge: Fair Discharge Disposition: 01 Home, Self Care - DIAGNOSES Admission Diagnoses: 1) Alcoholic ketoacidosis 2) Alcohol withdrawal 3) Alcoholic hepatitis 4) Acute kidney injury 5) Alcohol abuse 6) Gastritis 7) Methamphetamine drug abuse Discharge Diagnoses with Status of Each Condition: See below - HPI History of Present Illness: From the admission H&P of Dr Ryan Yun: This is a 28 year old female with history of alcohol abuse who presents from home for persistent nausea and vomiting over the past 24 hours. Most of the history is obtained from the patient's boyfriend as she lethargic and continues to have multiple episodes of emesis. He tells me that she has been drinking for the past five years on a daily basis. She usually drinks about 750mL of whiskey a day. Her last drink was yesterday morning. He states she may have gone through withdrawal in the past but he is not certain for sure. She has tried different resources for alcohol abuse without much success. He states that the patient has told him in the past it is too late for her to get help. He also tells me that she has been hospitalized a few times for similar complaints of nausea, vomiting, and "liver problems". Her most recent admission was about one month ago at [facility] where she was hospitalized for one 4 days and she left early despite the physicians there wanting to keep her for another day or two. The patient currently complains of nausea and non-bloody emesis. She complaints of throat pain and that it is burning. She does feel short of breath. She denies abdominal pain but endorses fevers and chills that began yesterday morning. In the ER, she was initially hypotensive and tachycardic with heart rates in the 130's. Labs were significant for a severe elevated AG metabolic acidosis and elevated lactic acid. Alcohol level was >1000. LFT's were elevated with AST > ALT. Her pH on VBG was 6.907. She was given Thiamine and Folic and multiple litres of crystalloid. She was then started on a bicarbonate infusion. She was admitted to the ICU for further management. - HOSPITAL COURSE Hospital Course: 1) Alcoholic ketoacidosis Her pH was 6.9, bicarbonate <6, AG was very high at 46, and lactic acid >10 and her serum ketones were positive. She had severe lactic acidosis secondary to her alcohol use. She received multiple litres of crystalloid, started in the ER along with a bicarbonate infusion. She also required D5 iv and Insulin drip. Her lactic acid, ketones and pH were monitored closely in the ICU. The drips were weaned down as she started to take liquids. 2) Hyperglycemia Her serum glu was 386. This resolved shortly after the acidosis was corrected to 255>> 146>> 127>> 116, and she did not require halfway diabetic management. 3) Alcohol withdrawal Her hallucinations and abnormal vital signs created high CIWA scores. She was managed with prn iv Ativan doses. After several days, these were spread out and weaned to off. She reported prior episodes of withdrawal to the Social Workers. 4) Alcoholic hepatitis Her admission labs improved, with alcohol abstinence: AST 195>> 132>> 112>> 101>> 94 and ALT 92>> 65>> normal, bilirubin was also elevated at 1.7>> 1.2>> 0.7. 5) GINETTE GINETTE was felt to be from volume depletion. Her BUN/creat at admission were 26/2.1 which improved daily with aggressive volume replacement to 25/0.7 and BUN/creat were 8/0.4 at discharge. 6) Alcohol abuse She was on iv hydration with Banana Bag infusions, then transitioned to oral multivitamins and Thiamine daily. After several days, she was awake and oriented and requested not to be seen by SW. She was finally seen in consultation by Social Work on her day of discharge. Unfortunately, she voiced that she was not planning on stopping alcohol or drug abuse, and declined the resources that were presented to her by Social Work. She was discharged with a new prescription for Clonidine to potentially help with abuse. 7) Gastritis Her abdominal pain, nausea and non-bloody emesis were felt to be secondary to her alcohol abuse. She was treated with Protonix IV and Zofran IV. She also got Pepcid po and TUMS. 8) Hypophosphatemia Her low Phosphate level of 1.5 dropped to < 1.0 and she needed daily replacement. 9) HTN At mid-hospitaliation she was hypertensive, likely from going through withdrawal and being off Clonidine, which was listed as a home medication, and thus she had rebound of HTN and elevated heart rate. The Clonidine was restarted at 0.1 mg po bid and she was discharged on this. 10) Sore throat She had several days with complaints of a sore throat. Her anita-pharyngeal eam was normal without erythema or swelling. Chloraseptic throat spray was not helping. It was felt to be from incessant vomiting at admission. 11) Anemia At admission, when hemoconcentrated her Hgb was 15. After iv hydration this dropped to 11.6>> 10.7 and it was 10.5 at discharge. Her B12 and Folate blood levels were adequate, but she had Iron deficiency. She was given oral Iron replacement. 12) Thrombocytopenia The admission plt count of 209K dropped to 118K>> 99K and was 109K at discharge. This was felt to be from narrow suppression from alcohol abuse. She had no signs of bleeding while here. Aspirin and NSAIDs were advised to be avoided. She was on mechanical DVT prophylaxis while here. 13) Meth drug abuse Her admission drug screen result was positive for Methamphetamines. SW discussed this with her and she indicated no desire to quit using at this time. - ALLERGIES Allergies/Adverse Reactions: Allergies Allergy/AdvReac Type Severity Reaction Status Date / Time hydrocodone bitartrate * Allergy Rash Verified 02/10/19 13:05 [From Vicodin] - MEDICATIONS Home Medications: Ambulatory Orders Medication Instructions Recorded Confirmed Nicotine 14 mg Patch [Nicoderm] 1 each TOP Q24H #14 patch 04/20/19 Vit #76/Iron,Carb/FA [Pnv 1 each PO DAILY #30 tablet 04/20/19 29-1 Tablet] Thiamine [Vitamin B-1] 100 mg PO DAILY #30 tablet 04/20/19 cloNIDine [Catapres] 0.1 mg PO BID #60 tablet 04/20/19 - PHYSICAL EXAM AT DISCHARGE General Appearance: positive: No acute distress Eyes Bilateral: positive: Normal inspection ENT: positive: Other (Moist mucosa) Neck: positive: Nml inspection, No JVD, Other ([place]) Respiratory: positive: No respiratory distress, Breath sounds nml Cardiovascular: positive: Regular rate & rhythm, No murmur Abdomen: positive: Non-tender, Nml bowel sounds Skin: positive: Pallor Extremities: positive: No pedal edema - LABS Result Diagrams: 04/20/19 04:40 04/20/19 04:40 - DIAGNOSTIC IMAGING Diagnostic Imaging Results: Final report reviewed - FOLLOW UP Follow Up: She was advised to establish with a PCP and have follow-up after this hosptalization. - TIME SPENT Time Spent in Discharge (Minutes): 60
== END 2019-04-20 19:19 | disposition home or self-care (01) | DRG 641 ==
LOC: EDUNIT# → ED 05:05 → ICU 07:13
PROVIDERS: ADMIT Internal Medicine; ATTEND Internal Medicine
PROC: 05H933Z Insertion of Infusion Device into Right Brachial Vein, Percutaneous Approach (ICD-10-PCS; principal; 2019-04-17)
DX: E87.2 Acidosis (principal); N17.9 Acute kidney failure, unspecified; F10.230 Alcohol dependence with withdrawal, uncomplicated; K70.10 Alcoholic hepatitis without ascites; F15.129 Other stimulant abuse with intoxication, unspecified; I95.9 Hypotension, unspecified; K29.20 Alcoholic gastritis without bleeding; E83.39 Other disorders of phosphorus metabolism; I15.9 Secondary hypertension, unspecified; T46.5X6A Underdosing of other antihypertensive drugs, initial encounter; J02.9 Acute pharyngitis, unspecified; E86.0 Dehydration; D50.9 Iron deficiency anemia, unspecified; D69.59 Other secondary thrombocytopenia; F17.200 Nicotine dependence, unspecified, uncomplicated; Z79.899 Other long term (current) drug therapy
CPT/HCPCS: 36415; 71045; 80048; 80053; 80076; 80306; 80307; 80320; 80329; 81001; 81025; 82009; 82272; 82330; 82550; 82607; 82746; 82803; 83036; 83540; 83605; 83690; 83735; 84100; 84466; 85025; 85610; 87040; 87150; 93005; 96361; 96365; 96375; 99284; 99285; A9270; J1815; J2060; J3411; 81003; 87086

== ENCOUNTER 2019-07-17 02:59 | Observation (INO) | payer MEDICAID ==
[2019-07-17] MEDS ORDERED: SODIUM CHLORIDE 0.9% 1,000 ML IV ONE (03:15)
[2019-07-17 03:32] LABS: BASOPHILS % (AUTO) 0.5 %; HGB - HEMOGLOBIN 12.9 g/dL (12.0-16.0); LYMPHOCYTES # (AUTO) 0.5 10^3/uL (1.5-3.5); LYMPHOCYTES % (AUTO) 7.7 %; MEAN CORPUSCULAR HEMOGLOBIN 34.1 pg (27.0-31.0); MEAN CORPUSCULAR HGB CONC 34.2 g/dL (32.0-36.0); MEAN CORPUSCULAR VOLUME 99.7 fL (81.0-99.0); MONOCYTES # (AUTO) 0.3 10^3/uL (0.0-1.0); MONOCYTES % (AUTO) 4.2 %; NEUTROPHILS # (AUTO) 5.7 10^3/uL (1.5-6.6); NEUTROPHILS % (AUTO) 87.3 %; PLT - PLATELET COUNT 150 10^3/uL (130-450); RED BLOOD COUNT 3.78 10^6/uL (4.20-5.40); RED CELL DISTRIBUTION WIDTH 12.9 % (12.0-15.0); WHITE BLOOD COUNT 6.5 x10^3/uL (4.8-10.8)
[2019-07-17] MEDS ORDERED: FOLIC ACID INJ 1 MG, THIAMINE INJ 100 MG, MAGNESIUM SULFATE 2 GM, MULTIVITAMIN 10 ML in... IV STA ×5 (03:44)
--- NOTE | 2019-07-17 03:44 | ED Physician Documentation ---
PD HPI NVD - Stated complaint Stated Complaint: N,V,F - Chief complaint Chief Complaint: Abd Pain - History obtained from History obtained from: Patient, Family - History of Present Illness Timing - onset: How many days ago (2) Timing - duration: Days (2) Timing - details: Abrupt onset Associated symptoms: Abdominal pain, Dizzy, Near syncope / syncope. No: Chest pain Contributing factors: Alcohol use. No: Sick contact, Bad food Recently seen: Not recently seen - Additonal information Additional information: This is a 28-year-old woman who presents with complaints that she normally drinks 1/5 of alcohol a day and stopped drinking 2 mornings ago and is having alcohol withdrawal symptoms "all of them". She is vomiting, very shaky and has not eaten in 3 days. She said the vomit now is just bile. Apparently she has been admitted to the hospital for detox several times the last one being about 6 months ago but is never been through an alcohol treatment program. Denies history of seizures and associated with alcohol withdrawal. She does have some abdominal pain points to the epigastric area. She does not have a sore throat but her nose is been, stuffy. No coughing. Her urine is very dark. She is basically spent the last few days sleeping on the couch and denies any loss of consciousness. They noted today that her face looks swollen.Patient does admit to using meth about once a week in addition to her alcohol consumption. Denies any other drugs. She is not currently working and is here with her significant other. Review of Systems Unable to obtain: Other (Actively vomiting) Constitutional: denies: Fever Eyes: denies: Loss of vision Nose: reports: Congestion Throat: denies: Sore throat Cardiac: denies: Chest pain / pressure Respiratory: denies: Cough GI: reports: Abdominal Pain, Nausea, Vomiting : denies: Dysuria Skin: denies: Rash Neurologic: reports: Generalized weakness PD PAST MEDICAL HISTORY - Past Medical History Past Medical History: Yes Cardiovascular: None Respiratory: None Neuro: None Endocrine/Autoimmune: None GI: None BANKRUPTCY ATTORNEY: None : None HEENT: None Psych: None Musculoskeletal: None Derm: None - Past Surgical History Past Surgical History: No - Present Medications Home Medications: Ambulatory Orders Medication Instructions Recorded Confirmed Nicotine 14 mg Patch [Nicoderm] 1 each TOP Q24H #14 patch 04/20/19 Vit,Calc76/Iron/Folic 1 each PO DAILY #30 tablet 04/20/19 [Pnv 29-1 Tablet] Thiamine [Vitamin B-1] 100 mg PO DAILY #30 tablet 04/20/19 cloNIDine [Catapres] 0.1 mg PO BID #60 tablet 04/20/19 - Allergies Allergies/Adverse Reactions: Allergies Allergy/AdvReac Type Severity Reaction Status Date / Time hydrocodone bitartrate * Allergy Rash Verified 07/17/19 03:13 [From Vicodin] - Social History Does the pt smoke?: Yes Smoking Status: Current every day smoker Does the pt drink ETOH?: Yes ETOH Use: Liquor, Other Does the pt have substance abuse?: Yes Substance Use and Type: Marijuana, Meth, Other - Immunizations Immunizations are current?: Yes - POLST Patient has POLST: No PD ED PE NORMAL - Vitals Vital signs reviewed: Yes - General General: Alert and oriented X 3, Other (Patient began dry heaving during the interview.) - HEENT HEENT: Atraumatic, PERRL, Other (No scleral icterus. Face has the appearance of someone who is chronic steroid-dependent with swelling and redness to the cheeks.). No: Moist mucous membranes - Neck Neck: No adenopathy - Cardiac Cardiac: No murmur, Other (Tachycardic) - Respiratory Respiratory: No respiratory distress, Clear bilaterally - Abdomen Abdomen: Soft, No organomegaly, Other (Diminished bowel sounds. There is tenderness in the epigastric area. 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, No motor deficit, No sensory deficit, Normal speech, Other (No gross neurological deficits) Results - Vitals Vitals: Vital Signs - 24 hr 07/17/19 07/17/19 07/17/19 03:00 03:10 04:14 Temperature 36.4 C L 36.4 C L Heart Rate 145 H 145 H 129 H Respiratory 20 20 23 Rate Blood Pressure 131/93 H 131/93 H O2 Saturation 98 98 100 07/17/19 05:12 Temperature Heart Rate 117 H Respiratory 18 Rate Blood Pressure 140/111 H O2 Saturation 100 Oxygen O2 Source Room air - Labs Labs: Laboratory Tests 07/17/19 07/17/19 07/17/19 03:20 03:20 03:20 WBC 6.5 RBC 3.78 L Hgb 12.9 Hct 37.7 MCV 99.7 H MCH 34.1 H MCHC 34.2 RDW 12.9 Plt Count 150 MPV 11.0 H Neut # (Auto) 5.7 Lymph # (Auto) 0.5 L Avery # (Auto) 0.3 Eos # (Auto) 0.0 Baso # (Auto) 0.0 Absolute Nucleated RBC 0.00 Nucleated RBC % 0.0 VBG pH VBG pCO2 VBG pO2 VBG HCO3 VBG Total CO2 VBG O2 Saturation VBG Base Excess Sodium 140 Potassium 3.9 Chloride 92 L Carbon Dioxide 11 L* Anion Gap 37.0 H BUN 15 Creatinine 0.8 Estimated GFR (MDRD) 84 L Glucose 149 H Lactic Acid Calcium 8.9 Phosphorus 5.4 H Magnesium 1.9 Total Bilirubin 2.8 H AST 334 H ALT 90 H Alkaline Phosphatase 134 H Total Protein 9.2 H Albumin 4.9 Globulin 4.3 H Albumin/Globulin Ratio 1.1 Lipase 72 H TSH Urine Color Urine Clarity Urine pH Ur Specific [place] Urine Protein Urine Glucose (UA) Urine Ketones Urine Occult Blood Urine Nitrite Urine Bilirubin Urine Urobilinogen Ur Leukocyte Esterase Urine RBC Urine WBC Ur Squamous Epith Cells Urine Bacteria Urine Casts Ur Microscopic Review Urine Culture Comments Urine HCG, Qual Ethyl Alcohol 28.8 07/17/19 07/17/19 07/17/19 03:20 03:39 04:07 WBC RBC Hgb Hct MCV MCH MCHC RDW Plt Count MPV Neut # (Auto) Lymph # (Auto) Avery # (Auto) Eos # (Auto) Baso # (Auto) Absolute Nucleated RBC Nucleated RBC % VBG pH VBG pCO2 VBG pO2 VBG HCO3 VBG Total CO2 VBG O2 Saturation VBG Base Excess Sodium Potassium Chloride Carbon Dioxide Anion Gap BUN Creatinine Estimated GFR (MDRD) Glucose Lactic Acid 5.5 H* Calcium Phosphorus Magnesium Total Bilirubin AST ALT Alkaline Phosphatase Total Protein Albumin Globulin Albumin/Globulin Ratio Lipase TSH 2.15 Urine Color YELLOW Urine Clarity CLEAR Urine pH 6.0 Ur Specific [place] >=1.030 H Urine Protein >=300 H Urine Glucose (UA) NEGATIVE Urine Ketones >=80 H Urine Occult Blood SMALL H Urine Nitrite NEGATIVE Urine Bilirubin NEGATIVE Urine Urobilinogen 0.2 (NORMAL) Ur Leukocyte Esterase NEGATIVE Urine RBC 0-5 Urine WBC 0-3 Ur Squamous Epith Cells MANY Squamous H Urine Bacteria Few Urine Casts 6-10 Hyaline Casts Ur Microscopic Review INDICATED Urine Culture Comments NOT INDICATED Urine HCG, Qual NEGATIVE Ethyl Alcohol 07/17/19 04:07 WBC RBC Hgb Hct MCV MCH MCHC RDW Plt Count MPV Neut # (Auto) Lymph # (Auto) Avery # (Auto) Eos # (Auto) Baso # (Auto) Absolute Nucleated RBC Nucleated RBC % VBG pH 7.245 L VBG pCO2 29.9 L VBG pO2 51.1 H VBG HCO3 12.7 L VBG Total CO2 13.6 L VBG O2 Saturation 79.8 VBG Base Excess -13.3 L Sodium Potassium Chloride Carbon Dioxide Anion Gap BUN Creatinine Estimated GFR (MDRD) Glucose Lactic Acid Calcium Phosphorus Magnesium Total Bilirubin AST ALT Alkaline Phosphatase Total Protein Albumin Globulin Albumin/Globulin Ratio Lipase TSH Urine Color Urine Clarity Urine pH Ur Specific [place] Urine Protein Urine Glucose (UA) Urine Ketones Urine Occult Blood Urine Nitrite Urine Bilirubin Urine Urobilinogen Ur Leukocyte Esterase Urine RBC Urine WBC Ur Squamous Epith Cells Urine Bacteria Urine Casts Ur Microscopic Review Urine Culture Comments Urine HCG, Qual Ethyl Alcohol PD MEDICAL DECISION MAKING - ED course Complexity details: reviewed results, d/w patient, d/w family ED course: Patient has elevated liver enzymes high lactic and venous pH is 7.2. She has alcoholic ketoacidosis and will be admitted for IV fluids and further management. Departure - Departure Disposition: ED Place in Observation Clinical Impression: Alcoholic ketoacidosis Condition: Fair Discharge Date/Time: 07/17/19 06:46
[2019-07-17 03:45] LABS: GLUCOSE, URINE (UA) NEGATIVE (NEGATIVE); KETONES,URINE (UA) >=80 mg/dL (NEGATIVE); LEUKOCYTE ESTERASE, URINE NEGATIVE (NEGATIVE); NITRITE,URINE NEGATIVE (NEGATIVE); OCCULT BLOOD,URINE SMALL (NEGATIVE); PROTEIN,URINE >=300 mg/dL (NEGATIVE); UROBILINOGEN,URINE 0.2 (NORMAL) E.U./dL (NORMAL)
[2019-07-17] MEDS ORDERED: ONDANSETRON 4 MG/2 ML VIAL IVP STA (03:45)
[2019-07-17] MEDS ORDERED: LORazepam 2 MG/ML VIAL IVP STA (03:45)
[2019-07-17 03:51] LABS: BILIRUBIN,URINE NEGATIVE (NEGATIVE); CLARITY,URINE CLEAR (CLEAR); HCG UR QUAL NEGATIVE; ICTOTEST,URINE NEGATIVE
[2019-07-17] MEDS ORDERED: THIAMINE 100 MG/1 ML 2 ML MDV ONE (03:59)
[2019-07-17 04:02] LABS: BACTERIA,URINE Few /HPF (None Seen); CASTS, URINE 6-10 Hyaline Casts /LPF; RBC,URINE 0-5 /HPF (0-5); SQUAMOUS EPITHELIAL CELL,UR MANY Squamous (<= Few)
[2019-07-17 04:04] LABS: ALBUMIN 4.9 g/dL (3.2-5.5); ALBUMIN/GLOBULIN RATIO 1.1 (1.0-2.2); BILIRUBIN,TOTAL 2.8 mg/dL (0.2-1.0); CALCIUM 8.9 mg/dL (8.5-10.3); CREATININE 0.8 mg/dL (0.4-1.0); TOTAL PROTEIN 9.2 g/dL (6.7-8.2)
[2019-07-17 04:15] LABS: MAGNESIUM 1.9 mg/dL (1.7-2.8); PHOSPHORUS 5.4 mg/dL (2.5-4.6)
[2019-07-17 04:17] LABS: VBG PH 7.245 (7.31-7.41)
[2019-07-17 04:18] LABS: VBG BASE EXCESS -13.3 mmol/L (-2 - +2); VBG PCO2 29.9 mmHg (41-51); VBG PO2 51.1 mmHg (25-47); VBG TOTAL CO2 13.6 mmol/L (24-29)
[2019-07-17] MEDS ORDERED: DEXTROSE 5%-0.45% NACL 1,000 ML IV SCH (06:00)
--- NOTE | 2019-07-17 06:10 | HISTORY & PHYSICAL EXAMINATION ---
Chief Complaint - Chief Complaint Chief Complaint: Nausea and vomiting History of Present Illness - Admitted From Admitted From:: Home - History Obtained From Records Reviewed: Yes History obtained from: Patient, Significant other, ER Physician - History of Present Illness HPI Comment/Other: This is a 28-year-old female with history of alcohol abuse and tobacco use who presents from home due to worsening nausea and vomiting over the past 48 hours. She reports her symptoms began Thursday when he began to have multiple episodes of nonbloody emesis associated with abdominal pain. She has had similar episodes in the past when she stops drinking alcohol. She reports drinking 1/5 of liquor every day and that her last drink was this past Thursday. She reports no chest pain but does report dyspnea. Denies fevers but does report chills. Her abdom inal pain is most prominent in the epigastric area. She reports no diarrhea, constipation, dysuria, urgency, frequency. She has been unable to keep anything down but is now able to keep some sips of water without vomiting. She reports feeling tremulous. Denies going to alcohol withdrawal in the past. In the emergency department, she is on to be tachycardic with heart rates in the 140s, normotensive, or bacteria in the low 20s, saturating well on room air. Labs revealed normal white count with a hemoglobin of 12.5 and MCV of 9.7. VBG showed a pH of 7.245. Her chemistry panel revealed a bicarbonate of 11 with an anion gap of 37. Lactic acid was elevated at 5.5. Renal function was normal. Her T bili is elevated at 2.8 and her AST is elevated at 334 with an ALT of 90. Lipase is 72. She was given a banana bag and a liter of saline in the emergency department. She was also given Zofran and 2 mg of Ativan IV. Given these findings, medicine was consulted for admission. 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 Her mother and one grandparent had colon cancer. She is not clear at what age they were diagnosed. She states that she was told she is too young for a colonoscopy. Living arrangement: At home Social History Notes: She lives with her significant other and [place]. She is currently not employed. She drinks about 1/5 of liquor daily. Denies going through withdrawal in the past. She does smoke about a half a pack of cigarettes daily since the age of 11. - POLST Patient has POLST: No Meds/Allgy - Home Medications Home Medications: Ambulatory Orders Medication Instructions Recorded Confirmed Nicotine 14 mg Patch [Nicoderm] 1 each TOP Q24H #14 patch 04/20/19 Vit,Calc76/Iron/Folic 1 each PO DAILY #30 tablet 04/20/19 [Pnv 29-1 Tablet] Thiamine [Vitamin B-1] 100 mg PO DAILY #30 tablet 04/20/19 cloNIDine [Catapres] 0.1 mg PO BID #60 tablet 04/20/19 - Allergies Allergies/Adverse Reactions: Allergies Allergy/AdvReac Type Severity Reaction Status Date / Time hydrocodone bitartrate * Allergy Rash Verified 07/17/19 03:13 [From Vicodin] Review of Systems - Constitutional Constitutional: reports: Fatigue, Chills, Malaise, Weakness, Poor appetite, Diaphoresis. denies: Fever - Cardiovascular Cariovascular: denies: Chest pain, Exertional dyspnea, Decr. exercise tolerance - Respiratory Respiratory: reports: SOB at rest, SOB with exertion. denies: Cough - Gastrointestinal Gastrointestinal: reports: Abdominal pain, Nausea, Vomiting, Bile emesis. d enies: Constipation, Diarrhea, Presley blood emesis - Genitourinary Genitourinary: denies: Dysuria, Frequency, Urgency - Musculoskeletal Musculoskeletal: denies: Muscle weakness - Integumentary Integumentary: denies: Rash - Neurological Neurological: reports: General weakness. denies: Focal weakness - All Other Systems All Other Systems: reports: Reviewed and negative Prior Level of Functionality: She is independent with ADLs. Exam - Vital Signs Reviewed Vital Signs: Yes Vital Signs: Vital Signs x48h Temp Pulse Resp BP Pulse Ox 07/17/19 05:12 117 H 18 140/111 H 100 07/17/19 04:14 129 H 23 100 07/17/19 03:10 36.4 C L 145 H 20 131/93 H 98 07/17/19 03:00 36.4 C L 145 H 20 131/93 H 98 - Physical Exam General Appearance: positive: Alert, Mild distress Eyes Bilateral: positive: Normal inspection ENT: positive: ENT inspection nml Neck: positive: Nml inspection Respiratory: positive: No respiratory distress. negative: Wheezes, Rales, Rhonchi Cardiovascular: positive: No murmur, Tachycardia. negative: Bradycardia, Systolic murmur, Diastolic murmur Abdomen: positive: Nml bowel sounds, No distention, Tenderness (In the epi gastric area most prominently but also diffuse tenderness.). negative: Non- tender, Guarding, Rebound, Abnml bowel sounds Skin: positive: No rash, Warm, Dry, Other (Small number of petechiae over both of her cheeks.) Extremities: positive: Full ROM, No pedal edema Neurologic/Psychiatric: positive: Oriented x3. negative: Disoriented to person, Disoriented to place, Disoriented to time Conclusion/Plan - Problem List (1) Alcoholic ketoacidosis Conclusion/Plan: Her labs are suggestive of an alcoholic/starvation ketoacidosis. Bicarbonate is significantly decreased at 11 with an anion gap of 37. Her lactic acid is elevated at 5.5. Urine ketones are positive and serum is pending. pH is 7.245. We will start her on D5/half-normal saline. Clear liquid diet as tolerated. Recheck labs this afternoon. (2) Lactic acidosis Conclusion/Plan: Lactic acid is elevated at 5.5 this likely secondary to her alcohol use and decreased liver clearance. This is likely a component of her elevated anion gap acidosis. We will recheck her lactic acid after IV hydration. (3) Alcoholic hepatitis Conclusion/Plan: Her LFTs are elevated in a pattern suggestive of alcoholic hepatitis given her significantly elevated AST compared to ALT. INR is pending but suspect her [place] score will be less than 32 and therefore there will likely be no role for steroids or Trental. Continue to trend her LFTs. (4) Alcohol abuse Conclusion/Plan: Continues to drink alcohol on a consistent basis despite negative consequences and multiple hospitalizations. She did not have success with prior rehabilitation attempts. Will consult social work. (5) Gastritis Conclusion/Plan: Secondary to alcohol use. Her emesis is nonbloody. We will start her on Protonix IV.Clear liquid diet as tolerated. Will hold off on Zofran at this time given her prolonged QTC. - Lab Results Fish Bones: 07/17/19 03:20 07/17/19 03:20 - EKG Results EKG Interpreted Independently: Yes EKG Comparison: Changed from prior EKG EKG Findings: Her EKG reveals a sinus tachycardia with a prolonged QTC. He does have diffuse T wave inversions throughout the lateral and inferior leads. This is more pronounced compared to prior EKG Core Measures - Anticipated LOS I expect patient to be DC'd or transferred within 96 hours.: Yes - Issues Hospital Issues and Management Plan: Alcohol ketoacidosis with nausea and vomiting requiring IV hydration. - DVT/VTE - Prophylaxis VTE/DVT Device ordered at admit?: Yes VTE/DVT Prophylaxis med ordered at admit?: Yes
[2019-07-17 06:32] LABS: INR 1.1 (0.8-1.2); PT - PROTHROMBIN TIME 12.8 secs (9.9-12.6)
[2019-07-17 07:40] LABS: CREATININE 0.8 mg/dL (0.4-1.0)
[2019-07-17] MEDS: SODIUM CHLORIDE FLUSH 0.9% 10 ML SYRINGE IVP SCH ×2 (07:58→15:45)
--- NOTE | 2019-07-17 08:49 | PROVIDER PROGRESS NOTE ---
Hospitalist Cross-cover Note - Cross-Cover Note Cross-Cover Note: She is nauseated and requesting medication to treat that. Her clinical picture and labs show dehydration. IV fluids started. The admitting provider noted the abn EKG with excessively long QTc in 600's Pharmacy was consulted and advised a Dexamethasone treatment plus a Scopalamine patch (as used in nauseated chemo pts), to try to treat the nausea. Otherwise the Zofran class of antiemetics has the least QT prolongation potential. Plan: Antiemetics prn as above Will assure she is on telemetry Will recheck ketones and BMP in about 12 hours. Will order a prn CIWA protocol with prn Ativan use. She is not clinically stable to be seen by SW yet.
[2019-07-17] MEDS ORDERED: DEXAMETHASONE 10 MG/ML VIAL IVP SCH (09:00)
[2019-07-17] MEDS ORDERED: cloNIDine 0.1 MG TABLET PO SCH ×2 (09:00)
[2019-07-17] MEDS ORDERED: SCOPOLAMINE PATCH TOP SCH (09:00)
[2019-07-17] MEDS: HEPARIN 5,000 UNIT/ML VIAL SUBQ SCH ×2 (09:19→20:52)
[2019-07-17] MEDS: SODIUM CHLORIDE FLUSH 0.9% 10 ML SYRINGE IVP PRN ×2 (09:21→11:54)
[2019-07-17] MEDS: LORazepam 2 MG/ML VIAL IVP PRN ×3 (09:57→15:45)
[2019-07-17] MEDS: PANTOPRAZOLE 40 MG TABLET PO SCH (10:00)
[2019-07-17] MEDS ORDERED: PROCHLORPERAZINE 10 MG/2 ML VIAL IVP PRN (11:43)
[2019-07-17 16:54] LABS: CALCIUM 7.8 mg/dL (8.5-10.3); CREATININE 0.7 mg/dL (0.4-1.0)
[2019-07-17] MEDS ORDERED: POTASSIUM PHOSPHATE 21 MMOL in SODIUM CHLORIDE 0.9% 250 ML IV ONE ×2 (19:07→21:00)
[2019-07-17] MEDS ORDERED: SODIUM CHLORIDE 0.9% 250 ML IV ONE (19:51)
[2019-07-17] MEDS ORDERED: NEUTRA-PHOS 250 MG TABLET PO ONE (20:00)
[2019-07-17] MEDS: DEXTROSE 5%-0.9% NACL 1,000 ML IV SCH (20:53)
[2019-07-17] MEDS: cloNIDine 0.1 MG TABLET PO SCH (20:53)
[2019-07-18] MEDS: SODIUM CHLORIDE FLUSH 0.9% 10 ML SYRINGE IVP SCH ×2 (00:37→07:35)
[2019-07-18 05:45] LABS: BASOPHILS % (AUTO) 0.2 %; HGB - HEMOGLOBIN 10.1 g/dL (12.0-16.0); LYMPHOCYTES # (AUTO) 0.8 10^3/uL (1.5-3.5); LYMPHOCYTES % (AUTO) 16.7 %; MEAN CORPUSCULAR HEMOGLOBIN 34.8 pg (27.0-31.0); MEAN CORPUSCULAR HGB CONC 35.2 g/dL (32.0-36.0); MEAN PLATELET VOLUME 12.2 fL (7.9-10.8); MONOCYTES # (AUTO) 0.3 10^3/uL (0.0-1.0); NEUTROPHILS # (AUTO) 3.6 10^3/uL (1.5-6.6); NEUTROPHILS % (AUTO) 76.9 %; PLT - PLATELET COUNT 105 10^3/uL (130-450); RED CELL DISTRIBUTION WIDTH 12.4 % (12.0-15.0); WHITE BLOOD COUNT 4.7 x10^3/uL (4.8-10.8)
[2019-07-18] MEDS: PANTOPRAZOLE 40 MG TABLET PO SCH (06:04)
[2019-07-18 06:15] LABS: CALCIUM 7.9 mg/dL (8.5-10.3); CREATININE 0.4 mg/dL (0.4-1.0); MAGNESIUM 1.5 mg/dL (1.7-2.8); PHOSPHORUS 1.6 mg/dL (2.5-4.6); TOTAL PROTEIN 7.2 g/dL (6.7-8.2)
--- NOTE | 2019-07-18 06:59 | Discharge Plan ---
Discharge Plan Problem Reviewed?: Yes Disposition: Home, Self Care Condition: Stable Prescriptions: Multivitamin/Iron/Folic Acid [Centrum Adults Tablet] 1 each PO DAILY #30 tablet Thiamine [Vitamin B-1] 100 mg PO DAILY #30 tablet Diet: Regular Activity Restrictions: No Restrictions Shower Restrictions: No Driving Restrictions: No Instruction Topics: Alcoholism Get Help, Addiction Recovery Counseling Health Concerns: You were admitted to the hospital because of severe nausea and vomiting which caused your blood work to be abnormal. This occurred likely because of your alcohol consumption in the past and your abrupt discontinuation of it. Your blood work has improved with IV fluids. It is important that you stop drinking alcohol and we have provided you with some resources for this. Your liver numbers are elevated which suggests chronic inflammation from alcohol use. You are fortunate you do not have liver failure yet but if you continue to drink alcohol, the chances of this occurring are high. Plan of Treatment: There are no changes made to medication. Once again, it is important you stop drinking alcohol as this will occur again and your liver numbers could become more elevated and you may develop liver failure. Care Goals: Please follow-up with your primary care physician within 1 week. No Smoking: If you smoke, Please STOP! Call for help.
[2019-07-18] MEDS ORDERED: NEUTRA-PHOS 250 MG TABLET PO SCH (07:00)
--- NOTE | 2019-07-18 07:33 | DISCHARGE SUMMARY ---
Discharge Summary Admit Date: 07/17/19 Discharge Date: 07/18/19 Discharging Provider: Ryan Yun Condition at Discharge: Stable Discharge Disposition: 01 Home, Self Care - DIAGNOSES Admission Diagnoses: Holick ketoacidosis Lactic acidosis Alcoholic hepatitis Alcohol abuse Gastritis Discharge Diagnoses with Status of Each Condition: Alcoholic ketoacidosis - resolved. Lactic acidosis - resolved. Alcoholic hepatitis - stable. Alcohol abuse - stable. Gastritis - stable. Hypophosphatemia - improved. - HPI History of Present Illness: This is a 28-year-old female with history of alcohol abuse and tobacco use who presents from home due to worsening nausea and vomiting over the past 48 hours. She reports her symptoms began Thursday when he began to have multiple episodes of nonbloody emesis associated with abdominal pain. She has had similar episodes in the past when she stops drinking alcohol. She reports drinking 1/5 of liquor every day and that her last drink was this past Thursday. She reports no chest pain but does report dyspnea. Denies fevers but does report chills. Her abdominal pain is most prominent in the epigastric area. She reports no diarrhea, constipation, dysuria, urgency, frequency. She has been unable to k eep anything down but is now able to keep some sips of water without vomiting. She reports feeling tremulous. Denies going to alcohol withdrawal in the past. In the emergency department, she is on to be tachycardic with heart rates in the 140s, normotensive, or bacteria in the low 20s, saturating well on room air. Labs revealed normal white count with a hemoglobin of 12.5 and MCV of 9.7. VBG showed a pH of 7.245. Her chemistry panel revealed a bicarbonate of 11 with an anion gap of 37. Lactic acid was elevated at 5.5. Renal function was normal. Her T bili is elevated at 2.8 and her AST is elevated at 334 with an ALT of 90. Lipase is 72. She was given a banana bag and a liter of saline in the emergency department. She was also given Zofran and 2 mg of Ativan IV. Given these find ings, medicine was consulted for admission. - HOSPITAL COURSE Hospital Course: She was admitted for alcoholic ketoacidosis and elevated lactic acid. She was s tarted on D5 half-normal with resolution in her acidosis. She was started on Protonix IV for her gastritis and her diet was advanced. She developed hypophosphatemia which was aggressively replaced. She also received thiamine and folic acid while hospitalized. We did discuss the importance of alcohol cessation and we offered her to meet with the social sciences chair regarding options but she declined. She was provided with handouts on the importance of alcohol cessation and numbers to contact. I also discussed with her regarding her alcoholic hepatitis and if this continues, she is at risk for cirrhosis and liver failure. - ALLERGIES Allergies/Adverse Reactions: Allergies Allergy/AdvReac Type Severity Reaction Status Date / Time hydrocodone bitartrate * Allergy Rash Verified 07/17/19 03:13 [From Vicodin] - MEDICATIONS Home Medications: Ambulatory Orders Medication Instructions Recorded Confirmed cloNIDine [Catapres] 0.1 mg PO BID #60 tablet 04/20/19 07/17/19 Multivitamin/Iron/Folic Acid 1 each PO DAILY #30 tablet 07/18/19 [Centrum Adults Tablet] Thiamine [Vitamin B-1] 100 mg PO DAILY #30 tablet 07/18/19 - PHYSICAL EXAM AT DISCHARGE General Appearance: positive: No acute distress, Alert Eyes Bilateral: positive: Normal inspection ENT: positive: ENT inspection nml Neck: positive: Nml inspection Respiratory: positive: No respiratory distress. negative: Wheezes, Rales, Rhonchi Cardiovascular: positive: Regular rate & rhythm, No murmur. negative: Tachycardia, Bradycardia, Systolic murmur Abdomen: positive: Non-tender, No distention. negative: Tenderness, Guarding, Rebound Skin: positive: No rash, Warm, Dry Extremities: positive: Full ROM, No pedal edema Neurologic/Psychiatric: positive: Oriented x3. negative: Disoriented to person, Disoriented to place, Disoriented to time, Weakness - LABS Result Diagrams: 07/18/19 05:22 07/18/19 05:55 - FOLLOW UP Follow Up: She was asked to follow-up with her primary care physician in 1 week. - TIME SPENT Time Spent in Discharge (Minutes): 30
[2019-07-18] MEDS ORDERED: POTASSIUM PHOSPHATE 15 MMOL in SODIUM CHLORIDE 0.9% 250 ML IV ONE (08:00)
[2019-07-18] MEDS ORDERED: MAGNESIUM OXIDE 400 MG TABLET PO SCH (08:00)
[2019-07-18] MEDS ORDERED: MULTIVITAMIN TABLET PO SCH (09:00)
[2019-07-18] MEDS ORDERED: THIAMINE 100 MG TABLET PO SCH (09:00)
[2019-07-18] MEDS ORDERED: FOLIC ACID 1 MG TABLET PO SCH (09:00)
[2019-07-18] MEDS: cloNIDine 0.1 MG TABLET PO SCH (09:10)
[2019-07-18] MEDS: DEXTROSE 5%-0.9% NACL 1,000 ML IV SCH (09:11)
[2019-07-18] MEDS: HEPARIN 5,000 UNIT/ML VIAL SUBQ SCH (09:12)
[2019-07-18 12:33] VITALS: BP 109/65
== END 2019-07-18 14:22 | disposition home or self-care (01) ==
LOC: ED 02:59 → MS2 05:56
PROVIDERS: ADMIT Internal Medicine; ATTEND Internal Medicine
DX: E87.2 Acidosis (principal); F10.10 Alcohol abuse, uncomplicated; K70.10 Alcoholic hepatitis without ascites; K29.20 Alcoholic gastritis without bleeding; E83.39 Other disorders of phosphorus metabolism; E86.0 Dehydration; R94.31 Abnormal electrocardiogram [ECG] [EKG]; F17.210 Nicotine dependence, cigarettes, uncomplicated
CPT/HCPCS: 36415; 80048; 80053; 80076; 80320; 81001; 81025; 82009; 82803; 83605; 83690; 83735; 84100; 84443; 84484; 85025; 85610; 93005; 96361; 96365; 96366; 96367; 96372; 96375; 96376; 99284; 99285; A9270; G0378; J2060; J3411; J3490; 81003; 87086

== ENCOUNTER 2019-09-19 18:12 | Emergency (ER) | payer MEDICAID ==
[2019-09-19 18:21] VITALS: BP 118/93
--- NOTE | 2019-09-19 18:47 | ED Physician Documentation ---
PD HPI URI - Stated complaint Stated Complaint: FLU SYMPTOMS - Chief complaint Chief Complaint: General - History obtained from History obtained from: Patient - History of Present Illness Timing - onset: How many weeks ago (2) Timing duration: Weeks (2) Timing details: Gradual onset, Still present, Waxing and waning Associated symptoms: Fever, Chills, Nasal congestion, Rhinorrhea, Sore throat, Productive cough, Dyspnea Contributing factors: Sick contact Improves by: Rest, Medication Similar symptoms before: Has not had sx before Recently seen: Not recently seen - Additional information Additional information: 29-year-old femaleWith a cough and congestion over the past 3 weeks has had persistence of symptoms and she has a lot of congestion to her nasal passages. She is coughing up yellow and green phlegm she is blowing phlegm out of her nose that is green and she is having pressure and pain to her sinuses. Review of Systems Constitutional: reports: Fever, Myalgias, Fatigue Eyes: denies: Decreased vision Ears: denies: Ear pain Nose: reports: Rhinorrhea / runny nose, Congestion, Sinus pressure / pain Throat: denies: Sore throat Cardiac: denies: Chest pain / pressure, Palpitations Respiratory: reports: Dyspnea, Cough GI: denies: Vomiting PD PAST MEDICAL HISTORY - Past Medical History Past Medical History: Yes Cardiovascular: Hypertension Respiratory: None Neuro: None Endocrine/Autoimmune: None GI: None [employer] ATTENDANT: None : None HEENT: None Psych: None Musculoskeletal: None Derm: None - Past Surgical History Past Surgical History: No - Present Medications Home Medications: Ambulatory Orders Medication Instructions Recorded Confirmed cloNIDine [Catapres] 0.1 mg PO BID #60 tablet 04/20/19 07/17/19 Multivitamin/Iron/Folic Acid 1 each PO DAILY #30 tablet 07/18/19 [Centrum Adults Tablet] Thiamine [Vitamin B-1] 100 mg PO DAILY #30 tablet 07/18/19 Azithromycin [Zithromax] 250 mg PO DAILY #6 tablet 09/19/19 - Allergies Allergies/Adverse Reactions: Allergies Allergy/AdvReac Type Severity Reaction Status Date / Time hydrocodone bitartrate * Allergy Rash Verified 09/19/19 18:16 [From Vicodin] - Social History Does the pt smoke?: Yes Smoking Status: Current every day smoker Does the pt drink ETOH?: Yes ETOH Use: Liquor Does the pt have substance abuse?: Yes Substance Use and Type: Marijuana, Meth - Immunizations Immunizations are current?: No Immunizations: TDAP >10years/unknown - POLST Patient has POLST: No PD ED PE NORMAL - Vitals Vital signs reviewed: Yes (hypertensive ) - General General: Alert and oriented X 3, No acute distress, Well developed/nourished - HEENT HEENT: Atraumatic, PERRL, EOMI, Ears normal, Moist mucous membranes, Dentition benign, Other (The pharynx is with angry erythema without exudate there is point tenderness to the maxillary sinuses bilaterally.) - Neck Neck: Supple, no meningeal sign, No bony TTP - Cardiac Cardiac: RRR, No murmur - Respiratory Respiratory: No respiratory distress, Other (diminished breath sounds bilat) - Abdomen Abdomen: Soft, Non tender - Derm Derm: Normal color, Warm and dry, No rash - Extremities Extremities: No deformity, No edema - Neuro Neuro: Alert and oriented X 3, striper machine 2-12 intact, No motor deficit, No sensory deficit, Normal speech Eye Opening: Spontaneous Motor: Obeys Commands Verbal: Oriented GCS Score: 15 - Psych Psych: Normal mood, Normal affect Results - Vitals Vitals: Vital Signs - 24 hr 09/19/19 18:16 Temperature 36.8 C Heart Rate 100 Respiratory 14 Rate Blood Pressure 118/93 H O2 Saturation 99 Oxygen O2 Source Room air PD MEDICAL DECISION MAKING - ED course Complexity details: reviewed results, re-evaluated patient, considered differential, d/w patient ED course: 29-year-old female with a 2-week respiratory illness has a lot of nasal congestion and green and yellow phlegm from the nasal passages. She has sinus point tenderness she is diagnosed with maxillary sinusitis given a dose of dexamethasone 10 mg and we will place her on some small pills as she has difficulty swallowing pills. Departure - Departure Disposition: 01 Home, Self Care Clinical Impression: Sinusitis Qualifiers: Sinusitis location: maxillary Chronicity: acute Recurrence: non-recurrent Qualified Code(s): J01.00 - Acute maxillary sinusitis, unspecified Condition: Stable Instructions: ED Sinusitis Abx Tx Follow-Up: Your, doctor [Other] Prescriptions: Azithromycin [Zithromax] 250 mg PO DAILY #6 tablet
[2019-09-19] MEDS ORDERED: DEXAMETHASONE 10 MG/ML VIAL PO STA (18:51)
[2019-09-19] MEDS ORDERED: CHERRY SYRUP 10 ML UDC PO ONE (18:51)
== END 2019-09-19 19:03 | disposition home or self-care (01) ==
LOC: ED 18:12
DX: J01.00 Acute maxillary sinusitis, unspecified (principal); I10 Essential (primary) hypertension; F17.200 Nicotine dependence, unspecified, uncomplicated
CPT/HCPCS: 99282; 99284; A9270